=== PATIENT | female | born 1935 | race Caucasian/White ===

== ENCOUNTER 2017-05-29 09:03 | Observation (INO) | payer MEDICARE ==
--- NOTE | 2017-05-29 10:03 | RAD ---
INDICATION: Chest pain. COMPARISON: There are no prior studies available for comparison. TECHNIQUE: Dual-energy PA and lateral views of the chest were obtained. FINDINGS: The heart is within normal limits in size. Mediastinal and hilar contours appear within normal limits. The lungs are clear. No pleural effusion is present. IMPRESSION: NO EVIDENCE FOR ACTIVE CARDIOPULMONARY DISEASE.
[2017-05-29 10:14] LABS: Hematocrit 39 % (35-47); Hemoglobin 12.9 g/dl (12.0-16.0); Mean Corpuscular HGB Conc 33 g/dl (31-36); Mean Corpuscular Hemoglobin 32 pg (27-31); Mean Corpuscular Volume 96 fL (80-97); Mean Platelet Volume 9 um3 (7.4-10.4); Red Blood Count 4.07 10^6/ul (4.0-5.4); Red Cell Distribution Width 14 % (10.5-15); White Blood Count 9.1 10^3/ul (3.5-10.8)
[2017-05-29 10:31] LABS: Albumin 3.2 g/dL (3.2-5.2); BUN/Creatinine Ratio 23.7 (8-20); Calcium 10.1 mg/dL (8.6-10.3); EGFR Non-African American 57.6 (>60); Globulin 2.9 g/dL (2-4); Magnesium 1.9 mg/dL (1.9-2.7); Potassium 3.9 mmol/L (3.5-5.0); Total Bilirubin 0.7 mg/dL (0.2-1.0); Total Protein 6.1 g/dL (6.4-8.9)
[2017-05-29 10:37] LABS: Troponin I 0.06 ng/mL (<0.04)
[2017-05-29 11:02] LABS: TSH (Thyroid Stimulating Horm) 4.4 mcIU/mL (0.34-5.60)
[2017-05-29] MEDS: Enoxaparin(*) 40 MG/0.4 ML SYR SUBCUT SCH (13:48)
[2017-05-29] MEDS: Metoprolol Tartrate TAB* 25 MG PO SCH (13:48)
[2017-05-29 14:54] LABS: Urine Bacteria Absent (Absent); Urine Bilirubin Negative (Negative); Urine Glucose Negative (Negative); Urine Nitrite Negative (Negative)
--- NOTE | 2017-05-29 15:20 | HP ---
CC: Dr. Hinojosa; Dr. Mosley, Cardiology. * HISTORY AND PHYSICAL: DATE OF ADMISSION: 05/29/17 PRIMARY CARE PHYSICIAN: Dr. Hinojosa. CHIEF COMPLAINT: Palpitations, chest heaviness. HISTORY OF PRESENT ILLNESS: Ms. Akesr is a pleasant 81-year-old female with a past medical history of hypertension, "irregular heart rate;" osteopenia; Aide's thyroiditis, status post left partial thyroidectomy who presents to the hospital with headache, palpitations and chest heaviness. Patient states that these symptoms began this morning; however, she has been having flu-like symptoms for the past week or so. Earlier this month around 05/09/17 or , she found a tick under her right breast. She thinks it was on there for at least 48 hours possibly up to 3 plus days. The tick was removed. She went on vacation and came back on 05/17/17. About a week after that her symptoms began. She states she has flu-like symptoms, general malaise, low grade fevers and chills at home with a documented temperature of 100.9 at the highest, also had a loss of appetite. Denies any nausea, vomiting, abdominal pain. She said there was a small red area around the tick bite that did not have any central clearing. She went to see her PCP this past Tuesday05/23/17, regarding these symptoms and the tick bite. She saw Dr. Tavares in the clinic. He did not feel that her rash looked like that of lyme disease, but did send off some blood work as well as a CBC, as well as a CMP. Lyme serology was negative which is seen in our system right now. Patient states that she was told to take some ibuprofen and try to get some rest. She felt like over the past few days her symptoms seemed to be improving. She was able to get some sleep and her temperature normalized. However, this morning as soon as she woke up, she felt the headache and palpitations. She felt like her heart rate was irregular and had some associated chest heaviness. During this she called the EMS, was brought to the hospital and was found to be in atrial fibrillation on a 12-lead EKG. While in the emergency department, she spontaneously converted on her own back to normal sinus rhythm. PAST MEDICAL HISTORY: Significant for: 1. Hypertension. 2. Irregular heart rate, possibly PVC's. 3. Osteopenia. 4. Aide's thyroiditis, status post left partial thyroidectomy. PAST SURGICAL HISTORY: 1. D and C. 2. Intrauterine polyp removal. 3. Left partial thyroidectomy. HOME MEDICATIONS: 1. Metoprolol tartrate 25 mg by mouth daily. 2. Calcium citrate plus D 1 tablet by mouth daily. 3. Aspirin 81 mg by mouth at bedtime. 4. Amlodipine 2.5 mg by mouth at bedtime. 5. Multivitamin 1 tablet by mouth at bedtime. ALLERGIES: The patient reports no known drug allergies. FAMILY HISTORY: Significant for her mother with diabetes, father with heart problem. SOCIAL HISTORY: The patient has no history of tobacco abuse. Does not use any alcohol or illicit drug use. REVIEW OF SYSTEMS: A 12-point review of systems negative except for that as noted in the HPI. PHYSICAL EXAMINATION GENERAL: This patient is a pleasant elderly female, lying in bed in no apparent distress. VITAL SIGNS: On admission, temperature 99.0, heart rate of 131, respiratory rate of 20, O2 saturation 99% on room air, blood pressure 104/51. HEENT: Head: Normocephalic, atraumatic. Eyes: Pupils equal, round, and reactive to light and accommodation. Anicteric sclerae. ENT: Moist mucous membranes. No cervical adenopathy. LUNGS: Clear to auscultation bilaterally. No wheezes, rales or rhonchi. CARDIOVASCULAR: Regular rate and rhythm. Occasional ectopic beat. No murmurs, gallops or rubs. ABDOMEN: Soft, nontender, nondistended. Bowel sounds are positive. EXTREMITIES: No cyanosis, clubbing or edema. SKIN: The patient has a small erythematous area on her right breast, where she states her previous tick was located. There is no erythema or tenderness. She does have some small erythematous patches on her abdomen without any central clearing. DIAGNOSTIC STUDIES/LAB DATA: White blood cell count 9.1, hematocrit of 39, platelets 239. INR of 0.97. Sodium 138, potassium 3.9, chloride of 103, carbon dioxide of 30, BUN of 22, creatinine of 0.93, glucose of 120. Lactic acid of 1.1. AST of 56, ALT of 59, alk phos of 142. CK of 16, CK-MB of 2.2, troponin 0.06, B- natriuretic peptide of 131. TSH of 4.4. Chest x-ray personally reviewed shows no acute disease. EKG personally reviewed initially showed atrial fibrillation with heart rate of 115, with an RSR prime. Subsequent EKG showed normal sinus rhythm, again with RSR prime, some T-wave flattening in III and AVF as well as inversion of V3. I did not appreciate any significant ST changes. ASSESSMENT AND PLAN: New onset atrial fibrillation, spontaneously converted, with associated chest heaviness and palpitations in an 81-year-old female with a past medical history of hypertension, osteopenia, Aide's thyroiditis, what sounds like premature ventricular contractions, and tick bite earlier this month. 1. Atrial fibrillation. Patient converted back to normal sinus rhythm without any additional medications. We will continue on her home metoprolol for now. Will not start anticoagulation at this time. Ordered an echocardiogram. We will trend the patient's troponins, but I think it is most likely that her mild troponin elevation is due to demand ischemia from the atrial fibrillation rather than ischemia causing the atrial fibrillation. TSH is within normal limits. I do not think this is in relation to her previous tick bite. 2. Tick bite earlier this month. The patient has Lyme serology sent on that was negative. This was likely about 2 weeks or so after her tick bite. She does have some mild LFT elevations. I will send PCR for anaplasmosis and ehrlichiosis as she has been having low grade fevers and flu like symptoms. Continue supportive care for now with analgesics and antiinflammatories. 3. Hypertension. Continue amlodipine and metoprolol. 4. Osteopenia. Patient takes alendronate at home, we will hold this for now. 5. DVT prophylaxis: Lovenox subcu. 6. Code status: The patient is a full code. TIME SPENT: Total time spent on this admission 45 minutes, with over half the time spent [id number] with the patient in counseling and coordinating care. [id number]/[facility] #: [id number] MTDD
--- NOTE | 2017-05-29 18:51 | ED ---
Bang Wright Thomas, scribed for Zane Benites MD on 05/29/17 at 0944 . Palpitations / Dysrhythmia - HPI Summary HPI Summary: The pt is an 81 y/o BIBA c/o palpitations that began this AM. Pt additionally c/ o chest heaviness, MARTIN (severe, onset when she woke up), dizziness (minor), diaphoresis, near-syncope, fever (over the past week), and generalized malaise. Pt denies SOB and pedal edema (although she did have R foot swelling two weeks ago, resolved in the ED). She took a Tylenol at 03:00 today. She is not taking any blood thinners. PMHx: A-Fib, anemia, HTN, mitral/aortic valve regurgitation. PSHx: T&A. SHx: no smoking, no drinking, no illicit drugs. She claims recent tick bites. - History of Current Complaint Chief Complaint: EDDysrhythmPalp Time Seen by Provider: 05/29/17 09:29 Hx Obtained From: Patient Onset/Duration: Sudden Onset - this AM when she woke up, Resolved - malaise is resolved in the ED Timing: Constant Character: Pounding Aggravating: Nothing Alleviating: Nothing Associated Signs & Symptoms: Dizzy - minor, Syncope - near, Diaphoresis - Allergy/Home Medications Allergies/Adverse Reactions: Allergies Allergy/AdvReac Type Severity Reaction Status Date / Time No Known Allergies Allergy Verified 12/27/12 07:23 Home Medications: Home Medications Metoprolol Tartrate TAB* [Lopressor TAB*] 25 mg PO DAILY 05/29/17 [History Confirmed 05/29/17] PMH/Surg Hx/FS Hx/Imm Hx Previously Healthy: No Endocrine/Hematology History: Reports: Hx Thyroid Disease - THYROIDECTOMY- HASHIMOTOS, Hx Anemia - SLIGHT IN THE PAST Cardiovascular History: Reports: Hx Atrial Fibrillation, Hx Hypertension - ON MEDS, Hx Valvular Heart Disease - AORTIC VALVE LEAKAGE, Other Cardiovascular Problems/Disorders Respiratory History: Denies: Other Respiratory Problems/Disorders Musculoskeletal History: Denies: Hx Osteoporosis Sensory History: Reports: Hx Contacts or Glasses - GLASSES Denies: Hx Hearing Aid Opthamlomology History: Reports: Hx Contacts or Glasses - GLASSES Neurological History: Denies: Other Neuro Impairments/Disorders - Cancer History Hx Chemotherapy: No Hx Radiation Therapy: No - Surgical History Surgery Procedure, Year, and Place: TH[place]ROID LEFT [place], , [facility] [place] REMOV[place], , [facility] [place], [place], [place]. [place], TONSI[place]OMY, [facility] [place] ADENOIDECT[place] Hx Anesthesia Reactions: No Infectious Disease History: No Infectious Disease History: Denies: Traveled Outside the [place] in Last 30 Days - Family History Known Family History: Positive: Other - NEG: per neighbor present in room, no [place] - Social History Alcohol Use: None Substance Use Type: Reports: None Smoking Status (MU): Never Smoked Tobacco Review of Systems Positive: Fever - over the past week, Skin Diaphoresis, Other - POS: generalized malaise Eyes: Negative ENT: Negative Positive: Palpitations - pounding, Chest Pain - heaviness Respiratory: Negative Negative: Shortness Of Breath Gastrointestinal: Negative Genitourinary: Negative Musculoskeletal: Negative Negative: Edema - pedal Skin: Negative Neurological: Other - POS: dizziness (minor) Positive: Headache - severe, onset today, Syncope - near Psychological: Normal All Other Systems Reviewed And Are Negative: Yes Physical Exam - Summary Physical Exam Summary: VITAL SIGNS: Reviewed. GENERAL: Patient is a well developed and nourished female who is lying comfortable in the stretcher. Patient is not in any acute respiratory distress. HEAD AND FACE: No signs of trauma. No ecchymosis, hematomas or skull depressions. No sinus tenderness. EYES: PERRLA, EOMI x 2, No injected conjunctiva, no nystagmus. EARS: Hearing grossly intact. Ear canals and tympanic membranes are within normal limits. MOUTH: Oropharynx within normal limits. NECK: Supple, trachea is midline, no adenopathy, no JVD, no carotid bruit, no c- spine tenderness, neck with full ROM. CHEST: Symmetric, no tenderness at palpation LUNGS: Clear to auscultation bilaterally. No wheezing or crackles. CVS: irregular rate and rhythm, S1 and S2 present, no murmurs or gallops appreciated. ABDOMEN: Soft, non-tender. No signs of distention. No rebound no guarding, and no masses palpated. Bowel sounds are normal. EXTREMITIES: FROM in all major joints, no edema, no cyanosis or clubbing. NEURO: Alert and oriented x 3. No acute neurological deficits. Speech is normal and follows commands. SKIN: Dry and warm Triage Information Reviewed: Yes Vital Signs On Initial Exam: Initial Vitals Temp Pulse Resp Pulse Ox 99.0 F 131 20 99 05/29/17 09:17 05/29/17 09:17 05/29/17 09:17 05/29/17 09:17 Vital Signs Reviewed: Yes - [place] Coma Scale Coma Scale Total: 15 Diagnostics - Vital Signs Vital Signs Temp Pulse Resp BP Pulse Ox 05/29/17 09:22 99.5 F 109 16 104/51 95 05/29/17 09:20 108 95 05/29/17 09:19 109 94 05/29/17 09:17 99.0 F 131 20 99 - Laboratory Lab Results: Lab Results 05/29/17 05/29/17 05/29/17 Range/Units 10:00 10:00 10:00 WBC 9.1 (3.5-10.8) 10^3/ul RBC 4.07 (4.0-5.4) 10^6/ul Hgb 12.9 (12.0-16.0) g/dl Hct 39 (35-47) % MCV 96 (80-97) fL MCH 32 H (27-31) pg MCHC 33 (31-36) g/dl RDW 14 (10.5-15) % Plt Count 239 (150-450) 10^3/ul MPV 9 (7.4-10.4) um3 Neut % (Auto) 73.5 (38-83) % Lymph % (Auto) 19.5 L (25-47) % [place] % (Auto) 5.9 (1-9) % Eos % (Auto) 0.5 (0-6) % Baso % (Auto) 0.6 (0-2) % Absolute Neuts (auto) 6.7 (1.5-7.7) 10^3/ul Absolute Lymphs (auto) 1.8 (1.0-4.8) 10^3/ul Absolute Monos (auto) 0.5 (0-0.8) 10^3/ul Absolute Eos (auto) 0 (0-0.6) 10^3/ul Absolute Basos (auto) 0.1 (0-0.2) 10^3/ul Absolute Nucleated RBC 0.01 10^3/ul Nucleated RBC % 0.1 INR (Anticoag Therapy) 0.97 (0.89-1.11) Sodium 138 (133-145) mmol/L Potassium 3.9 (3.5-5.0) mmol/L Chloride 103 (101-111) mmol/L Carbon Dioxide 30 (22-32) mmol/L Anion Gap 5 (2-11) mmol/L BUN 22 (6-24) mg/dL Creatinine 0.93 (0.51-0.95) mg/dL Est GFR ( Amer) 74.0 (>60) Est GFR (Non-Af Amer) 57.6 (>60) BUN/Creatinine Ratio 23.7 H (8-20) Glucose 120 H (70-100) mg/dL Lactic Acid (0.5-2.0) mmol/L Calcium 10.1 (8.6-10.3) mg/dL Magnesium 1.9 (1.9-2.7) mg/dL Total Bilirubin 0.70 (0.2-1.0) mg/dL AST 56 H (13-39) U/L ALT 59 H (7-52) U/L Alkaline Phosphatase 142 H (34-104) U/L Total Creatine Kinase 16 (10-223) U/L CK-MB (CK-2) 2.2 (0.6-6.3) ng/mL Troponin I 0.06 H* (<0.04) ng/mL B-Natriuretic Peptide ( - 100) pg/mL Total Protein 6.1 L (6.4-8.9) g/dL Albumin 3.2 (3.2-5.2) g/dL Globulin 2.9 (2-4) g/dL Albumin/Globulin Ratio 1.1 (1-3) TSH 4.40 (0.34-5.60) mcIU/mL 05/29/17 05/29/17 Range/Units 10:00 10:00 WBC (3.5-10.8) 10^3/ul RBC (4.0-5.4) 10^6/ul Hgb (12.0-16.0) g/dl Hct (35-47) % MCV (80-97) fL MCH (27-31) pg MCHC (31-36) g/dl RDW (10.5-15) % Plt Count (150-450) 10^3/ul MPV (7.4-10.4) um3 Neut % (Auto) (38-83) % Lymph % (Auto) (25-47) % [place] % (Auto) (1-9) % Eos % (Auto) (0-6) % Baso % (Auto) (0-2) % Absolute Neuts (auto) (1.5-7.7) 10^3/ul Absolute Lymphs (auto) (1.0-4.8) 10^3/ul Absolute Monos (auto) (0-0.8) 10^3/ul Absolute Eos (auto) (0-0.6) 10^3/ul Absolute Basos (auto) (0-0.2) 10^3/ul Absolute Nucleated RBC 10^3/ul Nucleated RBC % INR (Anticoag Therapy) (0.89-1.11) Sodium (133-145) mmol/L Potassium (3.5-5.0) mmol/L Chloride (101-111) mmol/L Carbon Dioxide (22-32) mmol/L Anion Gap (2-11) mmol/L BUN (6-24) mg/dL Creatinine (0.51-0.95) mg/dL Est GFR ( Amer) (>60) Est GFR (Non-Af Amer) (>60) BUN/Creatinine Ratio (8-20) Glucose (70-100) mg/dL Lactic Acid 1.1 (0.5-2.0) mmol/L Calcium (8.6-10.3) mg/dL Magnesium (1.9-2.7) mg/dL Total Bilirubin (0.2-1.0) mg/dL AST (13-39) U/L ALT (7-52) U/L Alkaline Phosphatase (34-104) U/L Total Creatine Kinase (10-223) U/L CK-MB (CK-2) (0.6-6.3) ng/mL Troponin I (<0.04) ng/mL B-Natriuretic Peptide 131 H ( - 100) pg/mL Total Protein (6.4-8.9) g/dL Albumin (3.2-5.2) g/dL Globulin (2-4) g/dL Albumin/Globulin Ratio (1-3) TSH (0.34-5.60) mcIU/mL Result Diagrams: 05/29/17 10:00 05/29/17 10:00 Lab Statement: Any lab studies that have been ordered have been reviewed, and results considered in the medical decision making process. - Radiology CXR Xray Interpretation: No Acute Changes - No evidence for active cardiopulmonary disease Radiology Interpretation Completed By: Radiologist - EKG 09:43 Cardiac Rate: Tachycardia - 115 BPM EKG Interpretation: A-Fib with RVR Course/Dx - Course Assessment/Plan: The pt is an 81 y/o BIBA c/o palpitations that began this AM. Pt additionally c/o chest heaviness, MARTIN (severe, onset when she woke up), dizziness (minor), diaphoresis, near-syncope, fever (over the past week), and generalized malaise. Pt denies SOB and pedal edema (although she did have R foot swelling two weeks ago, resolved in the ED). She took a Tylenol at 03:00 today. She is not taking any blood thinners. PMHx: A-Fib, anemia, HTN, mitral/ aortic valve regurgitation. PSHx: T&A. SHx: no smoking, no drinking, no illicit drugs. She claims recent tick bites. Tests are without significant abnormalities except Glucose 120, Troponin 0.6, and elevated LFTs. CXR revealed no evidence for acute disease. The patient is asymptomatic, therefore we did not treat with Cardizem. In the ED course her heart rate was 90-100 BPM. Because of her increased troponin, she was given aspirin. The patient is hemodynamically stable and A&Ox3. - Diagnoses Differential Diagnosis/HQI/PQRI: Positive: Other - Atrial Fibrillation, NSTEMI, ACS, CHF Provider Diagnoses: Paroxysmal atrial fibrillation with RVR, Increased troponin r/o ACS - Physician Notifications Discussed Care Of Patient With: Adolfo Woodall Time Discussed With Above Provider: 11:14 Instructed by Provider To: Other - Discussed patient care. He will accept the patient for admission to [facility] [place]. Discharge - Discharge Plan Condition: Fair Disposition: ADMITTED TO [facility] documentation as recorded by the Bang keen Thomas accurately reflects the service I personally performed and the decisions made by mn, Zane Benites MD.
[2017-05-29] MEDS: Acetaminophen TAB* 325 MG PO PRN (19:48)
[2017-05-29] MEDS ORDERED: amLODIPine TAB* 5 MG PO SCH (21:00)
[2017-05-29] MEDS ORDERED: Vitamin THERAPEUTIC TAB PO SCH (21:00)
[2017-05-29] MEDS ORDERED: Aspirin Low Dose CHEW TAB* 81 MG PO SCH (21:00)
[2017-05-29] MEDS ORDERED: Ibuprofen TAB* 400 MG PO ONE (22:25)
[2017-05-30 06:06] LABS: Albumin 2.7 g/dL (3.2-5.2); BUN/Creatinine Ratio 23.1 (8-20); Calcium 9.5 mg/dL (8.6-10.3); EGFR African American 65.1 (>60); EGFR Non-African American 50.6 (>60); Globulin 2.8 g/dL (2-4); Potassium 3.8 mmol/L (3.5-5.0); Total Bilirubin 0.6 mg/dL (0.2-1.0); Total Protein 5.5 g/dL (6.4-8.9)
[2017-05-30] MEDS: Acetaminophen TAB* 325 MG PO PRN ×2 (08:54→17:59)
[2017-05-30] MEDS: Metoprolol Tartrate TAB* 25 MG PO SCH (08:55)
[2017-05-30] MEDS: Enoxaparin(*) 40 MG/0.4 ML SYR SUBCUT SCH (11:49)
--- NOTE | 2017-05-30 14:12 | PN ---
Subjective Date of Service: 05/30/17 Interval History: No palpitations or chest pressure since admission. No new c/o. She never had theses sx's before. Her headache seems to have gone also. Objective Active Medications: Acetaminophen (Tylenol Tab*) 650 mg PO Q4H PRN PRN Reason: Pain/fever Last Admin: 05/30/17 08:54 Dose: 650 mg Amlodipine Besylate (Norvasc Tab*) 2.5 mg PO BEDTIME [facility] Last Admin: 05/29/17 19:47 Dose: 2.5 mg Aspirin (Aspirin Low Dose Tab*) 81 mg PO BEDTIME [facility] Last Admin: 05/29/17 19:48 Dose: 81 mg Enoxaparin Sodium (Lovenox(*)) 40 mg SUBCUT Q24H [facility] Last Admin: 05/30/17 11:49 Dose: 40 mg Metoprolol Tartrate (Lopressor Tab*) 25 mg PO DAILY [facility] Last Admin: 05/30/17 08:55 Dose: 25 mg Multivitamins (Theragran Tab*) 1 tab PO BEDTIME [facility] Last Admin: 05/29/17 19:47 Dose: 1 tab Vital Signs 05/29/17 05/29/17 05/29/17 14:10 14:20 14:30 Temperature Pulse Rate Respiratory 10 12 65 Rate Blood Pressure (mmHg) O2 Sat by Pulse Oximetry 05/29/17 05/29/17 05/29/17 14:40 14:50 15:00 Temperature Pulse Rate Respiratory 15 0 30 Rate Blood Pressure (mmHg) O2 Sat by Pulse Oximetry 05/29/17 05/29/17 05/29/17 15:10 15:20 15:30 Temperature Pulse Rate Respiratory 17 15 21 Rate Blood Pressure (mmHg) O2 Sat by Pulse Oximetry 05/29/17 05/29/17 05/29/17 15:31 15:40 15:50 Temperature 99.0 F Pulse Rate 70 Respiratory 16 12 20 Rate Blood Pressure 97/53 (mmHg) O2 Sat by Pulse 97 Oximetry 05/29/17 05/29/17 05/29/17 16:00 16:10 16:20 Temperature Pulse Rate Respiratory 8 3 5 Rate Blood Pressure (mmHg) O2 Sat by Pulse Oximetry 05/29/17 05/29/17 05/29/17 16:30 16:40 16:50 Temperature Pulse Rate Respiratory 0 0 15 Rate Blood Pressure (mmHg) O2 Sat by Pulse Oximetry 05/29/17 05/29/17 05/29/17 17:00 17:10 17:20 Temperature Pulse Rate Respiratory 11 17 13 Rate Blood Pressure (mmHg) O2 Sat by Pulse Oximetry 05/29/17 05/29/17 05/29/17 17:30 17:40 17:50 Temperature Pulse Rate Respiratory 7 12 15 Rate Blood Pressure (mmHg) O2 Sat by Pulse Oximetry 05/29/17 05/29/17 05/29/17 18:00 18:10 18:20 Temperature Pulse Rate Respiratory 0 0 0 Rate Blood Pressure (mmHg) O2 Sat by Pulse Oximetry 05/29/17 05/29/17 05/29/17 18:30 18:40 18:50 Temperature Pulse Rate Respiratory 16 29 9 Rate Blood Pressure (mmHg) O2 Sat by Pulse Oximetry 05/29/17 05/29/17 05/29/17 19:00 19:10 19:20 Temperature Pulse Rate Respiratory 9 27 4 Rate Blood Pressure (mmHg) O2 Sat by Pulse Oximetry 05/29/17 05/29/17 05/29/17 19:29 19:30 19:40 Temperature 100.1 F Pulse Rate 78 Respiratory 16 17 13 Rate Blood Pressure 105/47 (mmHg) O2 Sat by Pulse 95 Oximetry 05/29/17 05/29/17 05/29/17 19:50 20:00 20:10 Temperature Pulse Rate Respiratory 17 18 13 Rate Blood Pressure (mmHg) O2 Sat by Pulse Oximetry 05/29/17 05/29/17 05/29/17 20:20 20:30 20:39 Temperature Pulse Rate 78 Respiratory 28 0 Rate Blood Pressure 105/47 (mmHg) O2 Sat by Pulse Oximetry 05/29/17 05/29/17 05/29/17 20:40 20:43 20:50 Temperature Pulse Rate 85 Respiratory 0 0 Rate Blood Pressure 108/48 (mmHg) O2 Sat by Pulse Oximetry 05/29/17 05/29/17 05/29/17 21:00 21:10 21:20 Temperature Pulse Rate 94 Respiratory 13 18 20 Rate Blood Pressure 106/49 (mmHg) O2 Sat by Pulse Oximetry 05/29/17 05/29/17 05/29/17 21:30 21:40 21:50 Temperature Pulse Rate Respiratory 16 21 22 Rate Blood Pressure (mmHg) O2 Sat by Pulse Oximetry 05/29/17 05/29/17 05/29/17 22:00 22:10 22:16 Temperature 99.7 F Pulse Rate Respiratory 15 19 Rate Blood Pressure (mmHg) O2 Sat by Pulse Oximetry 05/29/17 05/29/17 05/29/17 22:20 22:30 22:40 Temperature Pulse Rate Respiratory 17 16 9 Rate Blood Pressure (mmHg) O2 Sat by Pulse Oximetry 05/29/17 05/29/17 05/29/17 22:50 23:00 23:10 Temperature Pulse Rate Respiratory 14 38 16 Rate Blood Pressure (mmHg) O2 Sat by Pulse Oximetry 05/29/17 05/29/17 05/29/17 23:20 23:30 23:40 Temperature Pulse Rate Respiratory 7 10 15 Rate Blood Pressure (mmHg) O2 Sat by Pulse Oximetry 05/29/17 05/29/17 05/29/17 23:45 23:50 23:55 Temperature 99.4 F Pulse Rate 71 Respiratory 16 18 17 Rate Blood Pressure 107/45 (mmHg) O2 Sat by Pulse 93 Oximetry 05/30/17 05/30/17 05/30/17 00:00 00:10 00:20 Temperature Pulse Rate Respiratory 15 0 0 Rate Blood Pressure (mmHg) O2 Sat by Pulse Oximetry 05/30/17 05/30/17 05/30/17 00:30 00:40 00:50 Temperature Pulse Rate Respiratory 0 0 0 Rate Blood Pressure (mmHg) O2 Sat by Pulse Oximetry 05/30/17 05/30/17 05/30/17 01:00 01:10 01:20 Temperature Pulse Rate Respiratory 0 0 0 Rate Blood Pressure (mmHg) O2 Sat by Pulse Oximetry 05/30/17 05/30/17 05/30/17 01:30 01:40 01:50 Temperature Pulse Rate Respiratory 13 17 2 Rate Blood Pressure (mmHg) O2 Sat by Pulse Oximetry 05/30/17 05/30/17 05/30/17 02:00 02:10 02:20 Temperature Pulse Rate Respiratory 14 14 14 Rate Blood Pressure (mmHg) O2 Sat by Pulse Oximetry 05/30/17 05/30/17 05/30/17 02:30 02:40 02:50 Temperature Pulse Rate Respiratory 12 4 0 Rate Blood Pressure (mmHg) O2 Sat by Pulse Oximetry 05/30/17 05/30/1705/30/17 03:00 03:10 03:20 Temperature Pulse Rate Respiratory 0 0 13 Rate Blood Pressure (mmHg) O2 Sat by Pulse Oximetry 05/30/17 05/30/17 05/30/17 03:22 03:30 03:40 Temperature 98.8 F Pulse Rate 66 Respiratory 16 12 16 Rate Blood Pressure 103/48 (mmHg) O2 Sat by Pulse 96 Oximetry 05/30/17 05/30/17 05/30/17 03:50 04:00 04:10 Temperature Pulse Rate Respiratory 12 11 13 Rate Blood Pressure (mmHg) O2 Sat by Pulse Oximetry 05/30/17 05/30/17 05/30/17 04:20 04:30 04:40 Temperature Pulse Rate Respiratory 14 11 10 Rate Blood Pressure (mmHg) O2 Sat by Pulse Oximetry 05/30/17 05/30/17 05/30/17 04:50 05:00 05:10 Temperature Pulse Rate Respiratory 9 14 0 Rate Blood Pressure (mmHg) O2 Sat by Pulse Oximetry 05/30/17 05/30/17 05/30/17 05:20 05:30 05:40 Temperature Pulse Rate Respiratory 15 16 0 Rate Blood Pressure (mmHg) O2 Sat by Pulse Oximetry 05/30/17 05/30/17 05/30/17 05:50 06:00 06:10 Temperature Pulse Rate Respiratory 0 0 0 Rate Blood Pressure (mmHg) O2 Sat by Pulse Oximetry 05/30/17 05/30/17 05/30/17 06:20 06:30 06:40 Temperature Pulse Rate Respiratory 0 0 4 Rate Blood Pressure (mmHg) O2 Sat by Pulse Oximetry 05/30/17 05/30/17 05/30/17 06:50 07:00 07:10 Temperature Pulse Rate Respiratory 4 4 17 Rate Blood Pressure (mmHg) O2 Sat by Pulse Oximetry 05/30/17 05/30/17 05/30/17 07:20 07:30 07:40 Temperature 98.0 F Pulse Rate 69 Respiratory 14 18 14 Rate Blood Pressure 100/53 (mmHg) O2 Sat by Pulse 94 Oximetry 05/30/17 05/30/17 05/30/17 07:50 08:00 08:10 Temperature Pulse Rate Respiratory 16 16 20 Rate Blood Pressure (mmHg) O2 Sat by Pulse Oximetry 05/30/17 05/30/17 05/30/17 08:20 08:30 08:40 Temperature Pulse Rate Respiratory 21 12 19 Rate Blood Pressure (mmHg) O2 Sat by Pulse Oximetry 05/30/17 05/30/17 05/30/17 08:50 09:00 09:10 Temperature Pulse Rate Respiratory 15 9 30 Rate Blood Pressure (mmHg) O2 Sat by Pulse Oximetry 05/30/17 05/30/17 05/30/17 09:20 09:30 09:40 Temperature Pulse Rate Respiratory 13 10 11 Rate Blood Pressure (mmHg) O2 Sat by Pulse Oximetry 05/30/17 05/30/17 05/30/17 09:50 10:00 10:10 Temperature Pulse Rate Respiratory 12 10 11 Rate Blood Pressure (mmHg) O2 Sat by Pulse Oximetry 05/30/17 05/30/17 05/30/17 10:20 10:30 10:40 Temperature Pulse Rate Respiratory 12 1 13 Rate Blood Pressure (mmHg) O2 Sat by Pulse Oximetry 05/30/17 05/30/17 05/30/17 10:50 11:00 11:06 Temperature 97.4 F Pulse Rate 67 Respiratory 0 13 16 Rate Blood Pressure 111/60 (mmHg) O2 Sat by Pulse 99 Oximetry 05/30/17 05/30/17 05/30/17 11:10 11:20 11:30 Temperature Pulse Rate Respiratory 14 15 17 Rate Blood Pressure (mmHg) O2 Sat by Pulse Oximetry 05/30/17 11:40 Temperature Pulse Rate Respiratory 13 Rate Blood Pressure (mmHg) O2 Sat by Pulse Oximetry Oxygen Devices in Use Now: None Appearance: Alert, sitting up in bed. In good spirits. Looks comfortable. Eyes: No Scleral Icterus Neck: NL Appearance and Movements; NL JVP, No Thyroid Enlargement, Masses Respiratory: Symmetrical Chest Expansion and Respiratory Effort, Clear to Auscultation, Clear to Percussion Cardiovascular: RRR, No Edema, - - 1-2/6 systolic murmur L>R Abdominal: NL Sounds; No Tenderness; No Distention, No Hepatosplenomegaly Extremities: No Edema, No Clubbing, Cyanosis Skin: No Rash or Ulcers, No Nodules or Sclerosis Neurological: Alert and Oriented x 3, NL Sensation Result Diagrams: 05/29/17 10:00 05/30/17 05:23 Additional Lab and Data: Lab Results 07/23/17 07/23/17 07/23/17 Range/Units 10:00 10:00 10:00 WBC 9.1 (3.5-10.8) 10^3/ul RBC 4.07 (4.0-5.4) 10^6/ul Hgb 12.9 (12.0-16.0) g/dl Hct 39 (35-47) % MCV 96 (80-97) fL MCH 32 H (27-31) pg MCHC 33 (31-36) g/dl RDW 14 (10.5-15) % Plt Count 239 (150-450) 10^3/ul MPV 9 (7.4-10.4) um3 Neut % (Auto) 73.5 (38-83) % Lymph % (Auto) 19.5 L (25-47) % [place] % (Auto) 5.9 (1-9) % Eos % (Auto) 0.5 (0-6) % Baso % (Auto) 0.6 (0-2) % Absolute Neuts (auto) 6.7 (1.5-7.7) 10^3/ul Absolute Lymphs (auto) 1.8 (1.0-4.8) 10^3/ul Absolute Monos (auto) 0.5 (0-0.8) 10^3/ul Absolute Eos (auto) 0 (0-0.6) 10^3/ul Absolute Basos (auto) 0.1 (0-0.2) 10^3/ul Absolute Nucleated RBC 0.01 10^3/ul Nucleated RBC % 0.1 INR (Anticoag Therapy) 0.97 (0.89-1.11) Sodium 138 (133-145) mmol/L Potassium 3.9 (3.5-5.0) mmol/L Chloride 103 (101-111) mmol/L Carbon Dioxide 30 (22-32) mmol/L Anion Gap 5 (2-11) mmol/L BUN 22 (6-24) mg/dL Creatinine 0.93 (0.51-0.95) mg/dL Est GFR ( Amer) 74.0 (>60) Est GFR (Non-Af Amer) 57.6 (>60) BUN/Creatinine Ratio 23.7 H (8-20) Glucose 120 H (70-100) mg/dL Lactic Acid (0.5-2.0) mmol/L Calcium 10.1 (8.6-10.3) mg/dL Magnesium 1.9 (1.9-2.7) mg/dL Total Bilirubin 0.70 (0.2-1.0) mg/dL AST 56 H (13-39) U/L ALT 59 H (7-52) U/L Alkaline Phosphatase 142 H (34-104) U/L Total Creatine Kinase 16 (10-223) U/L CK-MB (CK-2) 2.2 (0.6-6.3) ng/mL Troponin I 0.06 H* (<0.04) ng/mL B-Natriuretic Peptide ( - 100) pg/mL Total Protein 6.1 L (6.4-8.9) g/dL Albumin 3.2 (3.2-5.2) g/dL Globulin 2.9 (2-4) g/dL Albumin/Globulin Ratio 1.1 (1-3) TSH 4.40 (0.34-5.60) mcIU/mL 05/29/17 05/29/17 Range/Units 10:00 10:00 WBC (3.5-10.8) 10^3/ul RBC (4.0-5.4) 10^6/ul Hgb (12.0-16.0) g/dl Hct (35-47) % MCV (80-97) fL MCH (27-31) pg MCHC (31-36) g/dl RDW (10.5-15) % Plt Count (150-450) 10^3/ul MPV (7.4-10.4) um3 Neut % (Auto) (38-83) % Lymph % (Auto) (25-47) % [place] % (Auto) (1-9) % Eos % (Auto) (0-6) % Baso % (Auto) (0-2) % Absolute Neuts (auto) (1.5-7.7) 10^3/ul Absolute Lymphs (auto) (1.0-4.8) 10^3/ul Absolute Monos (auto) (0-0.8) 10^3/ul Absolute Eos (auto) (0-0.6) 10^3/ul Absolute Basos (auto) (0-0.2) 10^3/ul Absolute Nucleated RBC 10^3/ul Nucleated RBC % INR (Anticoag Therapy) (0.89-1.11) Sodium (133-145) mmol/L Potassium (3.5-5.0) mmol/L Chloride (101-111) mmol/L Carbon Dioxide (22-32) mmol/L Anion Gap (2-11) mmol/L BUN (6-24) mg/dL Creatinine (0.51-0.95) mg/dL Est GFR ( Amer) (>60) Est GFR (Non-Af Amer) (>60) BUN/Creatinine Ratio (8-20) Glucose (70-100) mg/dL Lactic Acid 1.1 (0.5-2.0) mmol/L Calcium (8.6-10.3) mg/dL Magnesium (1.9-2.7) mg/dL Total Bilirubin (0.2-1.0) mg/dL AST (13-39) U/L ALT (7-52) U/L Alkaline Phosphatase (34-104) U/L Total Creatine Kinase (10-223) U/L CK-MB (CK-2) (0.6-6.3) ng/mL Troponin I (<0.04) ng/mL B-Natriuretic Peptide 131 H ( - 100) pg/mL Total Protein (6.4-8.9) g/dL Albumin (3.2-5.2) g/dL Globulin (2-4) g/dL Albumin/Globulin Ratio (1-3) TSH (0.34-5.60) mcIU/mL Assess/Plan/Problems-Billing Assessment: - Patient Problems (1) PAF (paroxysmal atrial fibrillation) Current Visit: Yes Status: Acute Code(s): I48.0 - PAROXYSMAL ATRIAL FIBRILLATION SNOMED Code(s): 873248341 Comment: TSH nl. Echo showed nl LVEF, mild MR, mod LA dilatation. ? atrial fib provoked by her febril illness. Note temp 100.1 PM 05/29. (2) HTN (hypertension) Current Visit: Yes Status: Acute Code(s): I10 - ESSENTIAL (PRIMARY) HYPERTENSION SNOMED Code(s): 45405140 Comment: Stop amlodipine due to relatively low BP. Status and Disposition: Discharge now. Fup Dimitri Díaz.
--- NOTE | 2017-05-30 16:40 | ECHO ---
Patient: JEFFERSON MACIEL [facility] Rec#: [id number] : 1935 Date: 05/30/2017 Age: 81y Height: 160.02 cm / 63.0 in Weight: 63.5 kg / 140.0 lbs Sex: F BSA: 1.66 Room#: 432 Admit Date#: 05/29/2017 Type: Inpatient Referring: RODERICK SALAS MD Reading: Bertram Vega MD Workforce Planner: Mireille ReidRAMIRO CC: Bridger Hinojosa MD Transthoracic Echocardiogram Indication: A-fib BP: 111/60 HR: 68 Rhythm: NSR Findings History: HTN, Aide's thyroiditis, PFO, recent tick bite. Technical Comments: The study quality is good. Completed at 1530. Left Ventricle: The left ventricular chamber size is normal. Mild concentric left ventricular hypertrophy is observed. Global left ventricular wall motion and contractility are within normal limits. There is normal left ventricular systolic function. The estimated ejection fraction is 55-60%. Abnormal left ventricular diastolic function is observed. Abnormal left ventricular diastolic filling is observed, consistent with impaired relaxation. Left Atrium: The left atrium is moderately dilated. Right Ventricle: Moderator Band present. The right ventricular cavity size is normal. The right ventricle wall thickness is mildly increased. The right ventricular global systolic function is normal. Right Atrium: The right atrium is mild to moderately dilated. There is evidence of an atrial septal aneurysm. Aortic Valve: The aortic valve is trileaflet. The aortic valve leaflets are mildly thickened. Systolic excursion of the aortic valve cusps is reduced. There is mild aortic regurgitation. There is borderline aortic stenosis present. Mitral Valve: There is mitral annular calcification. The mitral valve leaflets are mildly thickened. There is mild mitral regurgitation. There is no evidence of mitral stenosis. Tricuspid Valve: The tricuspid valve leaflets are normal. There is mild tricuspid regurgitation. No pulmonary hypertension is noted. There is no tricuspid stenosis. Pulmonic Valve: The pulmonic valve appears normal. There is mild pulmonic regurgitation. There is no pulmonic stenosis. Pericardium: A trivial pericardial effusion is visualized. There are no signs of significant hemodynamic compromise. A pericardial fat pad is visualized. Aorta: There is no dilatation of the ascending aorta. There is no dilatation of the aortic arch. There is no dilation of the aortic root. Pulmonary Artery: The main pulmonary artery appears normal. Venous: The inferior vena cava is dilated. There is a greater than 50% respiratory change in the inferior vena cava dimension. Conclusions Global left ventricular wall motion and contractility are within normal limits. There is normal left ventricular systolic function. The estimated ejection fraction is 55-60%. Abnormal left ventricular diastolic filling is observed, consistent with impaired relaxation. The right ventricular global systolic function is normal. There is mild aortic regurgitation. There is borderline aortic stenosis present. There is mild mitral regurgitation. There is mild tricuspid regurgitation. No pulmonary hypertension is noted. A trivial pericardial effusion is visualized. There are no signs of significant hemodynamic compromise. Measurements Name Value Normal Range RVIDd (AP) 2D 3 cm (0.9 - 2.6) RVDdMajor (2D) 3.6 cm (2.2 - 4.4) RVAW (2D) 0.7 cm (0.2 - 0.5) RAd ISD 4CH 5.3 cm (3.4 - 4.9) RA (A4C)W 4.4 cm (2.9 - 4.6) IVSd (2D) 1.1 cm (0.6 - 1) LVPWd (2D) 1.1 cm (0.6 - 1) LVIDd (2D) 4.7 cm (3.6 - 5.4) LVIDs (2D) 3 cm - LV FS (2D) 36 % (25 - 45) Aortic Annulus 1.9 cm (1.4 - 2.6) Ao root diameter (2D) 3 cm (2.1 - 3.5) Ascending Ao 2.9 cm (2.1 - 3.4) Aortic arch 2.8 cm (1.8 - 3.4) LA dimension (AP) 2D 3.3 cm (2.3 - 3.8) LAd ISD 4CH 5.6 cm (2.9 - 5.3) LA ISD 4CH W 4.8 cm (2.5 - 4.5) Name Value Normal Range LA ESV SP 4CH (A/L) 75 ml - LA ESV SP 2CH (A/L) 61 ml - LA ESV BP (A/L) 68 ml - LA ESV BP (A/L) index 41 ml/m2 - LA ESV SP 4CH (MOD) 69 ml - LA ESV SP 2CH (MOD) 59 ml - Name Value Normal Range MV E-wave Vmax 0.94 m/sec - MV deceleration time 216 msec - MV A-wave Vmax 1.23 m/sec - MV E:A ratio 0.76 ratio - LV septal e' Vmax 0.05 m/sec - LV lateral e' Vmax 0.06 m/sec - LV E:e' septal ratio 18.8 ratio - LV E:e' lateral ratio 15.67 ratio - Name Value Normal Range AV Vmax 2.04 m/sec - AV VTI 43.7 cm - AV peak gradient 16.7 mmHg - AV mean gradient 9.12 mmHg - LVOT diameter 2 cm - LVOT Vmax 1.47 m/sec - LVOT VTI 33.1 cm - LVOT peak gradient 8.69 mmHg - LVOT mean gradient 5.83 mmHg - DOI (VTI) 0.78 ratio - CARISA (continuity Vmax) 2.26 cm2 - CARISA (continuity VTI) 2.38 cm2 - AR PHT 342 msec - AR peak gradient 47.98 mmHg - Name Value Normal Range TR Vmax 2.2 m/sec - TR peak gradient 19 mmHg - RAP 15 mmHg - RVSP 34 mmHg - IVC diameter 2.5 cm - Name Value Normal Range PV Vmax 0.97 m/sec - PV peak gradient 3.73 mmHg - GA end-diastolic Vmax 0.89 m/sec -
[2017-05-30 17:08] VITALS: BP 104/59
--- NOTE | 2017-05-31 14:36 | DS ---
CC: Dr. Davin Hinojosa; Dr. Mosley * DISCHARGE SUMMARY: DATE OF ADMISSION: DATE OF DISCHARGE: 05/30/17 HISTORY: This 81-year-old woman presented with palpitations and chest heaviness. She had some flu-like symptoms. She had noticed a tick under her right breast about May 09 or May 10, which she removed. Symptoms started a few days before admission. She had a Lyme serology sent, all of which was negative. She had some palpitations on the morning of admission. She had atrial fibrillation with a ventricular rate about 115. She spontaneously converted in the emergency room. She was monitored on telemetry. She had no further episodes of arrhythmia. Her temperature on the evening of the first hospital day was 100.1. It was under 100 after that. She felt much better. She had an echocardiogram which showed left ventricular ejection fraction was normal. There was mild mitral regurgitation and moderate left atrial dilatation. Her TSH was within normal limits. Other routine labs were unremarkable other than the creatinine of 1.04. Her troponin was minimally elevated with a peak of 0.09. She was told that she needed to be monitored as an outpatient to see if she has any other episodes of atrial fibrillation. This one was likely precipitated by her febrile infectious illness, which is now resolved. She was told to stop taking amlodipine as her blood pressure here had the highest diastolic was 60 and the highest systolic was 111 during her whole stay here. FINAL DIAGNOSES: 1. Paroxysmal atrial fibrillation. 2. Febrile illness, likely viral. 3. History of tick bite with negative Lyme serology. 4. Hypertension. DISCHARGE MEDICATIONS: 1. Multivitamin 1 daily. 2. Calcium citrate with vitamin D 1 daily. 3. Aspirin 81 mg h.s. 4. Metoprolol tartrate 25 mg daily. [id number]/[facility] #: [id number] [facility]
[2017-05-31 22:03] LABS: Ehrlichia ewingii/canis Negative (Negative)
== END 2017-05-30 19:25 | disposition home or self-care (01) ==
LOC: ED 09:03 → MEDTELE 11:43
PROVIDERS: ADMIT Hospitalist; ATTEND Internal Medicine
DX: I48.0 Paroxysmal atrial fibrillation (principal); R50.9 Fever, unspecified; I10 Essential (primary) hypertension; E06.3 Autoimmune thyroiditis; M85.80 Other specified disorders of bone density and structure, unspecified site; Z79.82 Long term (current) use of aspirin; Z79.899 Other long term (current) drug therapy
CPT/HCPCS: 36415; 71020; 80053; 81003; 81015; 82550; 82553; 83605; 83735; 83880; 84443; 84484; 85025; 85610; 87086; 87798; 93005; 93306; 96372; 99284; A9270-GY; G0378; J1650

== ENCOUNTER 2017-06-04 04:41 | Observation (INO) | payer MEDICARE ==
[2017-06-04 05:13] LABS: Hematocrit 33 % (35-47); Mean Corpuscular HGB Conc 33 g/dl (31-36); Mean Corpuscular Hemoglobin 32 pg (27-31); Mean Corpuscular Volume 95 fL (80-97); Mean Platelet Volume 9 um3 (7.4-10.4); Red Blood Count 3.48 10^6/ul (4.0-5.4); Red Cell Distribution Width 14 % (10.5-15); White Blood Count 9.9 10^3/ul (3.5-10.8)
[2017-06-04 05:16] LABS: Add Diff/Slide Review? Slide Review Added; Comments Flag Yes
[2017-06-04 05:25] LABS: Calcium 9.6 mg/dL (8.6-10.3); EGFR Non-African American 58.3 (>60); Potassium 3.8 mmol/L (3.5-5.0); Total Bilirubin 0.5 mg/dL (0.2-1.0)
[2017-06-04 05:27] LABS: Troponin I 0.02 ng/mL (<0.04)
[2017-06-04] MEDS ORDERED: Iodixanol* (CONTRAST) 320 MG/ML 100 ML SDV IV ONE (05:34)
[2017-06-04] MEDS ORDERED: Heparin DRIP 25,000 UNITS(*) 25,000 UNITS/500 ML BAG IVPB SCH (06:30)
--- NOTE | 2017-06-04 06:51 | ED ---
Jasiel Wright Alfonso, scribed for Ross Monroe on 06/04/17 at 0458 . Complex/Multi-Sys Presentation - HPI Summary HPI Summary: This patient is an 81 year old F BIBA to [facility] with a chief complaint of CP since 229. The CC is described as heaviness. The pain awoke her from sleep. Pt rates the pain 1/10 in severity. Symptoms aggravated and alleviated by nothing. Patient took ASA and Tylenol ALTERATION SPECIALIST which did not relieve her symptoms. Pt reports upper back pain. PMHx of A-Fib and HTN. - History Of Current Complaint Chief Complaint: EDChestPainROMI Time Seen by Provider: 06/04/17 04:49 Hx Obtained From: Patient Onset/Duration: Sudden Onset, Lasting Hours - since 229 this morning, Still Present Timing: Constant Severity Currently: Moderate Severity Initially: Moderate Location: Pain At: - Upper back and chest Character: Pressure - Heaviness Aggravating Factor(s): Nothing. Alleviating Factor(s): Nothing. Associated Signs And Symptoms: Positive: Back Pain - Upper - Allergies/Home Medications Allergies/Adverse Reactions: Allergies Allergy/AdvReac Type Severity Reaction Status Date / Time No Known Allergies Allergy Verified 12/27/12 07:23 PMH/Surg Hx/FS Hx/Imm Hx Endocrine/Hematology History: Reports: Hx Thyroid Disease - THYROIDECTOMY- HASHIMOTOS, Hx Anemia - SLIGHT IN THE PAST Cardiovascular History: Reports: Hx Atrial Fibrillation, Hx Hypertension - ON MEDS, Hx Valvular Heart Disease - AORTIC VALVE LEAKAGE, Other Cardiovascular Problems/Disorders Respiratory History: Denies: Other Respiratory Problems/Disorders Musculoskeletal History: Denies: Hx Osteoporosis Sensory History: Reports: Hx Contacts or Glasses - GLASSES Denies: Hx Hearing Aid Opthamlomology History: Reports: Hx Contacts or Glasses - GLASSES Neurological History: Denies: Other Neuro Impairments/Disorders - Cancer History Hx Chemotherapy: No Hx Radiation Therapy: No - Surgical History Surgery Procedure, Year, and Place: THYROID LEFT LOBECTOMY, , [facility] [place] UTERINE POLYP REMOVED, , [facility] [place]. [place], [place], [place], TONSILECTOMY, [facility] [place] AND ADENOIDECTOMY Hx Anesthesia Reactions: No Infectious Disease History: No Infectious Disease History: Denies: Traveled Outside the [place] in Last 30 Days - Family History Known Family History: Positive: Other - NEG: per neighbor present in room, no [place] - Social History Alcohol Use: None Substance Use Type: Reports: None Smoking Status (MU): Never Smoked Tobacco Review of Systems Positive: Chest Pain Positive: Other - Positive upper back pain All Other Systems Reviewed And Are Negative: Yes Physical Exam Triage Information Reviewed: Yes Vital Signs On Initial Exam: Initial Vitals Temp Pulse Resp BP Pulse Ox 97.3 F 62 14 126/84 97 06/04/17 04:46 06/04/17 04:46 06/04/17 04:46 06/04/17 04:46 06/04/17 04:46 Vital Signs Reviewed: Yes Appearance: Positive: Well-Appearing, No Pain Distress Skin: Positive: Warm, Skin Color Reflects Adequate Perfusion, Dry Head/Face: Positive: Normal Head/Face Inspection Eyes: Positive: EOMI, KRISTIAN ENT: Positive: Normal ENT inspection Neck: Positive: Supple, Nontender Respiratory/Lung Sounds: Positive: Clear to Auscultation, Breath Sounds Present Cardiovascular: Positive: Pulses are Symmetrical in both Upper and Lower Extremities, IRR Abdomen Description: Positive: Nontender, Soft Bowel Sounds: Positive: Present Musculoskeletal: Positive: Normal, Strength/ROM Intact Neurological: Positive: Normal, Sensory/Motor Intact, Alert, Oriented to Person Place, Time - [place] Coma Scale Coma Scale Total: 15 Diagnostics - Vital Signs Vital Signs Temp Pulse Resp BP Pulse Ox 06/04/17 04:46 97.3 F 62 14 126/84 97 - Laboratory Lab Results: Lab Results 06/04/17 06/04/17 06/04/17 Range/Units 05:01 05:01 05:01 WBC 9.9 (3.5-10.8) 10^3/ul RBC 3.48 L (4.0-5.4) 10^6/ul Hgb 11.0 L (12.0-16.0) g/dl Hct 33 L (35-47) % MCV 95 (80-97) fL MCH 32 H (27-31) pg MCHC 33 (31-36) g/dl RDW 14 (10.5-15) % Plt Count 324 (150-450) 10^3/ul MPV 9 (7.4-10.4) um3 Neut % (Auto) 56.4 (38-83) % Lymph % (Auto) 36.1 (25-47) % Levy % (Auto) 5.6 (1-9) % Eos % (Auto) 1.6 (0-6) % Baso % (Auto) 0.3 (0-2) % Absolute Neuts (auto) 5.6 (1.5-7.7) 10^3/ul Absolute Lymphs (auto) 3.6 (1.0-4.8) 10^3/ul Absolute Monos (auto) 0.6 (0-0.8) 10^3/ul Absolute Eos (auto) 0.2 (0-0.6) 10^3/ul Absolute Basos (auto) 0 (0-0.2) 10^3/ul Absolute Nucleated RBC 0 10^3/ul Nucleated RBC % 0 INR (Anticoag Therapy) 0.99 (0.89-1.11) APTT 29.8 (26.0-36.3) seconds Sodium 131 L (133-145) mmol/L Potassium 3.8 (3.5-5.0) mmol/L Chloride 99 L (101-111) mmol/L Carbon Dioxide 26 (22-32) mmol/L Anion Gap 6 (2-11) mmol/L BUN 23 (6-24) mg/dL Creatinine 0.92 (0.51-0.95) mg/dL Est GFR ( Amer) 75.0 (>60) Est GFR (Non-Af Amer) 58.3 (>60) BUN/Creatinine Ratio 25.0 H (8-20) Glucose 115 H (70-100) mg/dL Lactic Acid (0.5-2.0) mmol/L Calcium 9.6 (8.6-10.3) mg/dL Total Bilirubin 0.50 (0.2-1.0) mg/dL AST 44 H (13-39) U/L ALT 78 H (7-52) U/L Alkaline Phosphatase 135 H (34-104) U/L Troponin I 0.02 (<0.04) ng/mL B-Natriuretic Peptide ( - 100) pg/mL Total Protein 6.0 L (6.4-8.9) g/dL Albumin 3.0 L (3.2-5.2) g/dL Globulin 3.0 (2-4) g/dL Albumin/Globulin Ratio 1.0 (1-3) 06/04/17 06/04/17 Range/Units 05:01 05:01 WBC (3.5-10.8) 10^3/ul RBC (4.0-5.4) 10^6/ul Hgb (12.0-16.0) g/dl Hct (35-47) % MCV (80-97) fL MCH (27-31) pg MCHC (31-36) g/dl RDW (10.5-15) % Plt Count (150-450) 10^3/ul MPV (7.4-10.4) um3 Neut % (Auto) (38-83) % Lymph % (Auto) (25-47) % Levy % (Auto) (1-9) % Eos % (Auto) (0-6) % Baso % (Auto) (0-2) % Absolute Neuts (auto) (1.5-7.7) 10^3/ul Absolute Lymphs (auto) (1.0-4.8) 10^3/ul Absolute Monos (auto) (0-0.8) 10^3/ul Absolute Eos (auto) (0-0.6) 10^3/ul Absolute Basos (auto) (0-0.2) 10^3/ul Absolute Nucleated RBC 10^3/ul Nucleated RBC % INR (Anticoag Therapy) (0.89-1.11) APTT (26.0-36.3) seconds Sodium (133-145) mmol/L Potassium (3.5-5.0) mmol/L Chloride (101-111) mmol/L Carbon Dioxide (22-32) mmol/L Anion Gap (2-11) mmol/L BUN (6-24) mg/dL Creatinine (0.51-0.95) mg/dL Est GFR ( Amer) (>60) Est GFR (Non-Af Amer) (>60) BUN/Creatinine Ratio (8-20) Glucose (70-100) mg/dL Lactic Acid 1.1 (0.5-2.0) mmol/L Calcium (8.6-10.3) mg/dL Total Bilirubin (0.2-1.0) mg/dL AST (13-39) U/L ALT (7-52) U/L Alkaline Phosphatase (34-104) U/L Troponin I (<0.04) ng/mL B-Natriuretic Peptide 115 H ( - 100) pg/mL Total Protein (6.4-8.9) g/dL Albumin (3.2-5.2) g/dL Globulin (2-4) g/dL Albumin/Globulin Ratio (1-3) Result Diagrams: 06/04/17 05:01 06/04/17 05:01 Lab Statement: Any lab studies that have been ordered have been reviewed, and results considered in the medical decision making process. - Radiology CXR Radiology Interpretation Completed By: ED Physician - NAD - CT CTA Chest CT Interpretation Completed By: Radiologist - positive pulmonary emboli on the left. No infarct seen. Subcentimeter renal lesion on the left as above suspicious for a small renal cell carcinoma. - EKG 0503 Cardiac Rate: NL - BPM 61 EKG Rhythm: Sinus Rhythm EKG Interpretation: RBBB Complex Multi-Symp Course/Dx Assessment/Plan: 81 year old F BIBA to the ED with a CC of CP since 229. The CC is described as heaviness. Patient took ASA and Tylenol ALTERATION SPECIALIST which did not relieve her symptoms. Pt reports upper back pain. CXR reveals NAD. CTA Chest reveals positive pulmonary emboli on the left. No infarct seen. Subcentimeter renal lesion on the left as above suspicious for a small renal cell carcinoma. We discussed patient care with Dr. Dorantes (hospitalist) for admission. Patient will be admitted to Dr. Dorantes. Pt is agreeable with this plan. - Diagnoses Provider Diagnoses: Chest pain, Pulmonary emboli - Physician Notifications Discussed Care Of Patient With: Yovanny Dorantes Time Discussed With Above Provider: 06:40 Instructed by Provider To: Other - Consulted Dr. Dorantes (hospitalist) who agrees to admit. Discharge - Discharge Plan Condition: Stable Disposition: ADMITTED TO [facility] Referrals: Davin Hinojosa MD [Primary Care Provider] - The documentation as recorded by the Jasiel keen Alfonso accurately reflects the service I personally performed and the decisions made by , Ross Monroe.
[2017-06-04] MEDS ORDERED: Heparin VIAL(*) 5000 UNITS/ML VIAL (FIVE THOUSAND) IV SCH (07:00)
[2017-06-04] MEDS: Metoprolol Tartrate TAB* 25 MG PO SCH (09:55)
[2017-06-04] MEDS: Rivaroxaban TAB(*) 15 MG PO SCH ×2 (09:56→21:02)
--- NOTE | 2017-06-04 11:48 | RAD ---
INDICATION: Chest pain COMPARISON: Most recent comparison chest x-rays dated May 29, 2017 TECHNIQUE: Single AP portable view of the chest was obtained. FINDINGS: Image quality is compromised due to the relative inferiority of a portable chest x-ray. There is mild cardiomegaly similar in appearance to the prior chest x-ray. The heart and mediastinum otherwise exhibit normal contours. The lungs are grossly clear. There is no evidence of a large pleural effusion. Visualized bones are normal for the patient's age. IMPRESSION: No radiographic evidence for acute cardiopulmonary abnormality on this portable chest x-ray.
--- NOTE | 2017-06-04 12:02 | RAD ---
STUDY: CT angiography of the chest, abdomen and pelvis. INDICATION: Chest and back pain that awoke the patient from sleep. Relevant surgical history includes partial thyroidectomy. COMPARISON: None. TECHNIQUE: Multidetector CT angiography of the chest, abdomen and pelvis were obtained from the lung apices to the ischial tuberosities after the intravenous injection of 100 mL of Visipaque 320. Reformats were created in the coronal and sagittal planes. 3-D vascular imaging was created from the source images and reviewed as well. ANGIOGRAPHIC FINDINGS: There is nonocclusive thrombus at the distal most portion of the left mainstem pulmonary artery extending into the superior segmental artery. (Axial image 55 of 257). The remaining pulmonary arteries appear to be free from thrombus. There is mild calcification at the arch of the aorta. There is no pathologic aneurysmal dilatation of the thoracic or abdominal aorta. Calcified atherosclerosis is seen at the infrarenal abdominal aorta above the bifurcation extending into the iliac arteries. In-line flow is recorded as far as the proximal femoral arteries bilaterally. The major branch vessels from the abdominal aorta exhibits varying degrees of calcified atherosclerosis at the origins but patency is maintained. NON ANGIOGRAPHIC FINDINGS: Chest: In keeping with the patient's reported surgical history the left lobe of the thyroid is absent. There is a small amount of abdominal plexuses along the anterior margin of the left lower lobe adjacent to the heart. Otherwise the lungs are clear. There are no large pleural effusions. There is no mediastinal or hilar lymphadenopathy. The heart is grossly normal in appearance. Abdomen \T\ Pelvis: The liver, spleen, pancreas and adrenal glands are grossly normal in appearance. The gallbladder is normal. Multiple fluid density cysts are seen bilaterally in the kidneys. Along the anterior aspect of the mid-level left kidney (image 147) there is a solid enhancing soft tissue structure extending from the cortex. The renal cortices otherwise enhance symmetrically and promptly on the arterial phase imaging. Evaluation of the gastrointestinal tract is limited in the absence of oral contrast. The small and large bowel are not distended. Scattered rectosigmoid diverticula are noted. There is no gross retroperitoneal or mesenteric lymphadenopathy. The pelvic viscera is normal in appearance for the patient's age. Multilevel degenerative changes of the thoracic and lumbar spine include loss of intervertebral disc height.There are no sinister bone lesions. IMPRESSION: 1. Nonocclusive pulmonary embolus involving the left lower lobar and segmental pulmonary arteries as described above. 2. Along the anterior margin of the left kidney there is a 1.1 cm enhancing soft tissue nodule. I recommend further characterization on nonemergent basis with either contrast-enhanced MRI or ultrasound examination of the left kidney. 3. Additional age-appropriate chronic, degenerative and iatrogenic changes as described in the body the report.
--- NOTE | 2017-06-04 16:38 | HP ---
CC: Dr. Hinojosa; Dr. Mosley; Dr. Mcdaniel HISTORY AND PHYSICAL: DATE OF ADMISSION: 06/04/17 PRIMARY CARE PROVIDER: Dr. Hinojosa. DIRECTOR OF FIELD COORDINATION: Dr. Mosley. UROLOGIST: Dr. Mcdaniel. CHIEF COMPLAINT: Chest and back pain. HISTORY OF PRESENT ILLNESS: Ms. Akers is an 81-year-old female who is admitted from 05/29/17 [facility] h 05/30/17 with atrial fibrillation and what was thought to be a viral illness. The patient states that at the onset of that admission, she had awakened from sleep with rapid respiratory rate and fee ling of fluttering in her chest. She also had some chest heaviness. When she presented to the [facility] room, she was found to be in rapid atrial fibrillation. She converted on her own to normal si nus rhythm. She states over the next couple of days, she began to feel a little bit better and that she was not having as many body aches. The patient states that yesterday afternoon, she was feelin g well. She states her appetite was improving. She went to bed like usual. She states that she wo ke up on the morning of admission at approximately 2:30 a.m. with complaints of back ache. She stat es that she has had continued chest discomfort that comes and goes. She denies any pain with deep b reath. She has noted a mild cough, but is not bringing up any sputum. She states her fever is esse ntially resolved. The patient does admit to a recent trip to [place] earlier this month. PAST MEDICAL HISTORY: 1. Hypertension. 2. History of PVCs. 3. Osteopenia. 4. History of Aide's thyroiditis, status post left partial thyroidectomy. PAST SURGICAL HISTORY: 1. Left partial thyroidectomy. 2. D and C. 3. Uterine polyp removal. 4. Bilateral cataract extractions. MEDICATIONS: 1. Aspirin 81 mg p.o. daily. 2. Metoprolol tartrate 25 mg p.o. daily. 3. Doxycycline 100 mg p.o. twice daily. ALLERGIES: No known drug allergies. FAMILY HISTORY: Mom at age of 103, she had diabetes. Dad of heart disease at the age of 87. SOCIAL HISTORY: The patient is a nonsmoker. She does not drink alcohol. She is a retired nurse. She is . She has 4 children. Her son, Fabrice, home phone number is [phone] and cell phone , is her healthcare proxy. REVIEW OF SYSTEMS: The patient denies fevers. She states her appetite has been poor though slowly improving. She admits to the chest discomfort as above. She denies any palpitations. She notes th at once she was in [place], her foot was swollen. She states this is now resolved. She admits to cough, but no sputum production. No shortness of breath. She has had some mild nausea. No abdomin al pain. She does admit to being constipated. No hematochezia. No hematuria. No dysuria. No str rafael-like symptoms. No sudden changes in vision. No dysphagia. She states her body aches had been i mproving, but are slightly worse now than they were yesterday. She does feel slightly dizzy. She s tates that she does have a rash that is fading that she notes on her legs and arms and back. She de nies any anxiety or depression. PHYSICAL EXAMINATION GENERAL: The patient is a well-developed, elderly female, sitting up on the stretcher, in no acute distress. VITAL SIGNS: Blood pressure 141/68, pulse 74, respirations 18, temp 97.8, and O2 sat is 100% on jeniffer m air. HEENT: Pupils are equal, they are round. There is evidence of prior cataract extractions. Extraoc ular muscles are intact. Oropharynx is clear. Oral mucosa is moist. There is no submandibular, ce rvical, or supraclavicular adenopathy. PULMONARY: Lungs are clear to auscultation bilaterally. CARDIAC: Normal S1 and S2. Regular rate and rhythm. I did not appreciate any murmurs. There is r ight greater than left lower extremity edema. ABDOMEN: Bowel sounds are present. Abdomen is soft, nontender, nondistended. MUSCULOSKELETAL: There is no cyanosis or clubbing of the digits. There is full active range of mot ion of all 4 extremities. NEURO: Cranial nerves II through XII are grossly intact. Sensation is intact to light touch throug hout. Strength is 5/5 and symmetric to both upper and lower extremities bilaterally. PSYCH: The patient is alert. She is oriented x3. Affect appears appropriate. SKIN: Warm. It is dry. There is a patchy erythematous rash on the patient's legs and faintly note d on the patient's back. DIAGNOSTIC STUDIES/LAB DATA: WBC 9.9, hemoglobin 11.0, hematocrit 33, platelets 324. INR 0.99. S odium 131, potassium 3.8, chloride 99, CO2 26, BUN 23, creatinine 0.92, glucose 115, lactic acid 1.1 , calcium 9.6. Bilirubin 0.5, AST 44, ALT 76, alk phos 135. Troponin 0.02. BNP 115. Albumin 3.0. Chest x-ray: No radiographic evidence for acute cardiopulmonary abnormality. EKG: Reveals normal sinus rhythm with inverted T waves in the anterior leads. Otherwise, no acute S T-T wave abnormalities. CTA chest, abdomen, and pelvis: Nonocclusive pulmonary embolus involving the left lower lobar and s egmental pulmonary arteries. Along the anterior margin of the left kidney, there is a 1.1-cm enhanc ing soft tissue nodule. It is recommended to obtain further characterization on a nonemergent basis of either a contrast enhanced MRI or ultrasound examination of the left kidney. Age-appropriate ch ronic degenerative and iatrogenic changes are noted. ASSESSMENT AND PLAN: Ms. Akers is an 81-year-old female, who was recently admitted on 05/29/17 thro [facility] 05/30/17 with rapid atrial fibrillation, who presents to the emergency room with complaints of b ack and chest pain and was found to have pulmonary embolus in the left lung. 1. Pulmonary embolism. I am suspicious the patient may have in fact had a pulmonary embolism at th e time of her prior hospitalization. She does give history of a long distance travel to [facility] this month. Additionally, she notes that her right leg/foot was swollen at the time of that t rip. It is possible the pulmonary embolism led to her atrial fibrillation that she presented with l ast hospitalization as well as the mildly elevated troponins at that point. Currently, the patient is completely hemodynamically stable. She was started on heparin drip in the emergency room; [place] romo, this will be converted to Xarelto after the patient and I discussed options of anticoagulation in cluding Coumadin versus Xarelto or Eliquis. The patient will be monitored overnight on telemetry. At this point, I am going to hold off on ordering another echo as she did have an echocardiogram on 05/29/17, which revealed global left ventricular wall motion and contractility to be within normal l imits. The ejection fraction was estimated to be 55% to 60%. The right ventricular global systolic function was normal. No pulmonary hypertension was identified. If the patient begins to develop he modynamic compromise, I will go ahead and repeat echocardiogram. Most likely, the patient will be a ble to be discharged tomorrow morning. 2. Hypertension. The patient will be maintained on her usual dose of metoprolol. 3. DVT prophylaxis. According to the Adult Thrombosis Prophylaxis Risk Factor Assessment Guide, th e patient has a total risk factor score of 7, making her high risk. Xarelto will be utilized as her DVT prophylaxis. 4. Code status is full. TIME SPENT: Sixty minutes was spent admitting this patient. [id number]/[facility] #: [id number]
--- NOTE | 2017-06-04 17:29 | RAD ---
HISTORY: Pulmonary embolism TECHNIQUE: Multiple transverse and longitudinal ultrasound images were obtained of the veins of the bilateral lower extremities using grayscale, color Doppler, and spectral Doppler imaging with and without compression and with augmentation. FINDINGS: VEINS: The common femoral vein, deep femoral vein, femoral vein and popliteal vein are compressible throughout their course, with normal flow on color Doppler imaging and normal response to augmentation on spectral Doppler imaging. The deeper of the peroneal right peroneal artery exhibits accident color flow with echogenic material in the lumen. Similarly, there is absence of flow in the left peroneal artery is well. SOFT TISSUES: Grossly normal. No large popliteal fossa cyst was identified. IMPRESSION: 1. No sonographic evidence of femoropopliteal deep vein thrombosis. 2. Occlusive thrombus is identified in the bilateral peroneal veins.
[2017-06-04] MEDS ORDERED: Aspirin Low Dose CHEW TAB* 81 MG PO SCH (21:00)
[2017-06-04] MEDS: DOXYcycline CAP(*) 100 MG PO SCH (21:01)
[2017-06-05] MEDS: Acetaminophen TAB* 325 MG PO PRN ×2 (03:29→08:39)
[2017-06-05] MEDS: DOXYcycline CAP(*) 100 MG PO SCH (08:32)
[2017-06-05] MEDS: Metoprolol Tartrate TAB* 25 MG PO SCH (08:32)
[2017-06-05] MEDS: Rivaroxaban TAB(*) 15 MG PO SCH (08:32)
[2017-06-05 12:24] VITALS: BP 126/66
--- NOTE | 2017-06-05 13:25 | PN ---
Objective Active Medications: Acetaminophen (Tylenol Tab*) 650 mg PO Q4H PRN PRN Reason: FEVER/PAIN Last Admin: 06/05/17 08:39 Dose: 650 mg Aspirin (Aspirin Low Dose Tab*) 81 mg PO BEDTIME [facility] Last Admin: 06/04/17 21:01 Dose: 81 mg Doxycycline Hyclate (Vibramycin Cap(*)) 100 mg PO BID [facility] Last Admin: 06/05/17 08:32 Dose: 100 mg Metoprolol Tartrate (Lopressor Tab*) 25 mg PO DAILY [facility] Last Admin: 06/05/17 08:32 Dose: 25 mg Rivaroxaban (Xarelto(*)) 15 mg PO BID [facility] Last Admin: 06/05/17 08:32 Dose: 15 mg Vital Signs 06/04/17 06/04/17 06/04/17 14:00 15:00 15:15 Temperature 98.4 F Pulse Rate 69 Respiratory 19 17 17 Rate Blood Pressure 127/63 (mmHg) O2 Sat by Pulse 99 Oximetry 06/04/17 06/04/17 06/04/17 16:00 16:15 17:00 Temperature Pulse Rate Respiratory 14 13 44 Rate Blood Pressure (mmHg) O2 Sat by Pulse Oximetry 06/04/17 06/04/17 06/04/17 18:00 19:00 19:33 Temperature 98.4 F Pulse Rate 71 Respiratory 16 15 17 Rate Blood Pressure 151/74 (mmHg) O2 Sat by Pulse 100 Oximetry 06/04/17 06/04/17 06/04/17 20:00 21:00 22:00 Temperature Pulse Rate Respiratory 14 17 15 Rate Blood Pressure (mmHg) O2 Sat by Pulse Oximetry 06/04/17 06/04/17 06/05/17 23:00 23:29 00:00 Temperature 97.9 F Pulse Rate 68 Respiratory 14 20 13 Rate Blood Pressure 145/61 (mmHg) O2 Sat by Pulse 98 Oximetry 06/05/17 06/05/17 06/05/17 01:00 02:00 03:00 Temperature Pulse Rate Respiratory 14 19 2 Rate Blood Pressure (mmHg) O2 Sat by Pulse Oximetry 06/05/17 06/05/17 06/05/17 03:45 04:00 05:00 Temperature 98.5 F Pulse Rate 68 Respiratory 20 0 13 Rate Blood Pressure 139/60 (mmHg) O2 Sat by Pulse Oximetry 06/05/17 06/05/17 06/05/17 06:00 07:00 07:14 Temperature 97.7 F Pulse Rate 63 Respiratory 12 18 16 Rate Blood Pressure 137/59 (mmHg) O2 Sat by Pulse 99 Oximetry 06/05/17 06/05/17 06/05/17 08:00 09:00 10:00 Temperature Pulse Rate Respiratory 15 16 19 Rate Blood Pressure (mmHg) O2 Sat by Pulse Oximetry 06/05/17 11:13 Temperature 98.4 F Pulse Rate 57 Respiratory 16 Rate Blood Pressure 126/66 (mmHg) O2 Sat by Pulse 99 Oximetry Result Diagrams: 06/04/17 05:01 06/04/17 05:01 Additional Lab and Data: Lab Results 06/04/17 06/04/17 06/04/17 Range/Units 05:01 05:01 05:01 WBC 9.9 (3.5-10.8) 10^3/ul RBC 3.48 L (4.0-5.4) 10^6/ul Hgb 11.0 L (12.0-16.0) g/dl Hct 33 L (35-47) % MCV 95 (80-97) fL MCH 32 H (27-31) pg MCHC 33 (31-36) g/dl RDW 14 (10.5-15) % Plt Count 324 (150-450) 10^3/ul MPV 9 (7.4-10.4) um3 Neut % (Auto) 56.4 (38-83) % Lymph % (Auto) 36.1 (25-47) % [place] % (Auto) 5.6 (1-9) % Eos % (Auto) 1.6 (0-6) % Baso % (Auto) 0.3 (0-2) % Absolute Neuts (auto) 5.6 (1.5-7.7) 10^3/ul Absolute Lymphs (auto) 3.6 (1.0-4.8) 10^3/ul Absolute Monos (auto) 0.6 (0-0.8) 10^3/ul Absolute Eos (auto) 0.2 (0-0.6) 10^3/ul Absolute Basos (auto) 0 (0-0.2) 10^3/ul Absolute Nucleated RBC 0 10^3/ul Nucleated RBC % 0 INR (Anticoag Therapy) 0.99 (0.89-1.11) APTT 29.8 (26.0-36.3) seconds Sodium 131 L (133-145) mmol/L Potassium 3.8 (3.5-5.0) mmol/L Chloride 99 L (101-111) mmol/L Carbon Dioxide 26 (22-32) mmol/L Anion Gap 6 (2-11) mmol/L BUN 23 (6-24) mg/dL Creatinine 0.92 (0.51-0.95) mg/dL Est GFR ( Amer) 75.0 (>60) Est GFR (Non-Af Amer) 58.3 (>60) BUN/Creatinine Ratio 25.0 H (8-20) Glucose 115 H (70-100) mg/dL Lactic Acid (0.5-2.0) mmol/L Calcium 9.6 (8.6-10.3) mg/dL Total Bilirubin 0.50 (0.2-1.0) mg/dL AST 44 H (13-39) U/L ALT 78 H (7-52) U/L Alkaline Phosphatase 135 H (34-104) U/L Troponin I 0.02 (<0.04) ng/mL B-Natriuretic Peptide ( - 100) pg/mL Total Protein 6.0 L (6.4-8.9) g/dL Albumin 3.0 L (3.2-5.2) g/dL Globulin 3.0 (2-4) g/dL Albumin/Globulin Ratio 1.0 (1-3) 06/04/17 06/04/17 Range/Units 05:01 05:01 WBC (3.5-10.8) 10^3/ul RBC (4.0-5.4) 10^6/ul Hgb (12.0-16.0) g/dl Hct (35-47) % MCV (80-97) fL MCH (27-31) pg MCHC (31-36) g/dl RDW (10.5-15) % Plt Count (150-450) 10^3/ul MPV (7.4-10.4) um3 Neut % (Auto) (38-83) % Lymph % (Auto) (25-47) % Wallace % (Auto) (1-9) % Eos % (Auto) (0-6) % Baso % (Auto) (0-2) % Absolute Neuts (auto) (1.5-7.7) 10^3/ul Absolute Lymphs (auto) (1.0-4.8) 10^3/ul Absolute Monos (auto) (0-0.8) 10^3/ul Absolute Eos (auto) (0-0.6) 10^3/ul Absolute Basos (auto) (0-0.2) 10^3/ul Absolute Nucleated RBC 10^3/ul Nucleated RBC % INR (Anticoag Therapy) (0.89-1.11) APTT (26.0-36.3) seconds Sodium (133-145) mmol/L Potassium (3.5-5.0) mmol/L Chloride (101-111) mmol/L Carbon Dioxide (22-32) mmol/L Anion Gap (2-11) mmol/L BUN (6-24) mg/dL Creatinine (0.51-0.95) mg/dL Est GFR ( Amer) (>60) Est GFR (Non-Af Amer) (>60) BUN/Creatinine Ratio (8-20) Glucose (70-100) mg/dL Lactic Acid 1.1 (0.5-2.0) mmol/L Calcium (8.6-10.3) mg/dL Total Bilirubin (0.2-1.0) mg/dL AST (13-39) U/L ALT (7-52) U/L Alkaline Phosphatase (34-104) U/L Troponin I (<0.04) ng/mL B-Natriuretic Peptide 115 H ( - 100) pg/mL Total Protein (6.4-8.9) g/dL Albumin (3.2-5.2) g/dL Globulin (2-4) g/dL Albumin/Globulin Ratio (1-3) Assess/Plan/Problems-Billing Assessment: - Patient Problems (1) Pulmonary embolism Current Visit: Yes Status: Acute Code(s): I26.99 - OTHER PULMONARY EMBOLISM WITHOUT ACUTE COR PULMONALE SNOMED Code(s): 17359181 Comment: Will change to lovenox bridging to coumadin as both xarelto and elquis require prior authorizations. She will need INR on 06/07/17. We reviewed when/if she should come back to the hospital including worsened pain, SOB or hemoptysis. She was also found to have B/L below knee DVTs.
--- NOTE | 2017-06-06 15:14 | DS ---
CC: Dr. Hinojosa * DISCHARGE SUMMARY: DATE OF ADMISSION: 06/04/17 DATE OF DISCHARGE: 06/05/17 PRIMARY CARE PROVIDER: Dr. Hinojosa. PRINCIPAL DIAGNOSES: 1. Left-sided pulmonary embolism. 2. Bilateral below knee deep venous thrombosis. SECONDARY DIAGNOSES: 1. Hypertension. 2. Recent hospitalization where atrial fibrillation was identified. 3. History of Aide's thyroiditis. DISCHARGE MEDICATIONS: 1. Metoprolol tartrate 25 mg p.o. daily. 2. Doxycycline 100 mg p.o. twice daily to complete the course of therapy started at home. 3. Coumadin 5 mg p.o. daily. 4. Lovenox 70 mg subcutaneous twice daily until INR is between 2 to 3. Discontinued medications: 1. Aspirin. HOSPITAL COURSE: Ms. Akers is an 81-year-old female who was recently admitted from 05/29/17 through 05/30/17 with what was felt to be a viral illness and atrial fibrillation. At that time, the patient was ultimately discharged home to continue on her aspirin and metoprolol. The patient represented to the emergency room on 06/04/17 with complaints of back pain as well as chest discomfort. The patient underwent CTA of the chest which revealed a left-sided pulmonary embolism. The patient was initially started on heparin drip, however , after patient and I discussed her oral option, a decision was made to start her on Xarelto. On the day of discharge, the patient is feeling well. She continued to agree with treatment with Xarelto; however, when I checked with her pharmacy, it became clear that the patient will need a prior authorization for this. The patient wished to be discharged to home from hospital, therefore , she will be started on Lovenox 70 mg subcutaneously twice daily bridging to Coumadin. The patient will be started on Coumadin 5 mg p.o. daily starting tonight. The patient will need a followup INR on 06/07/17. The patient has already an appointment scheduled with Dr. Tavares for 06/08/17, and I have encouraged her to keep this appointment. Of note, on admission, the patient's CTA also included the abdomen and pelvis. The CT of the abdomen revealed a 1.1 cm enhancing soft tissue nodule on the anterior margin of the left kidney. It is recommended to have further characterization on an nonemergent basis with either a contrast enhanced MRI or an ultrasound examination of the left kidney to further evaluate this nodule. On the day of discharge, the patient was awake, alert and oriented, sitting up in bed, appearing to be in no acute distress. Her vital signs are stable with good blood pressure control and heart rate. She is afebrile. She is 99% on room air. The patient's cardiac exam revealed a normal S1 and S2 with a regular rate and rhythm. Her lungs were clear to auscultation bilaterally. The patient does have trace to 1+ bilateral lower extremity edema. Again, the patient is stable for discharge to home today. FOLLOWUP CONCERNS: The patient is being discharged home today, 06/05/17. ACTIVITY LEVEL: As tolerated. DIET: Regular. CONDITION ON DISCHARGE: Stable. TIME SPENT: Thirty-five minutes was spent discharging this patient. [id number]/CPS #: [id number] MTDD
== END 2017-06-05 14:35 | disposition home or self-care (01) ==
LOC: ED 04:41 → MEDTELE 07:56
PROVIDERS: ADMIT Hospitalist; ATTEND Hospitalist
DX: I26.99 Other pulmonary embolism without acute cor pulmonale (principal); I82.4Z3 Acute embolism and thrombosis of unspecified deep veins of distal lower extremity, bilateral; I10 Essential (primary) hypertension; I48.91 Unspecified atrial fibrillation; E06.3 Autoimmune thyroiditis; R07.9 Chest pain, unspecified; Z79.01 Long term (current) use of anticoagulants; Z79.899 Other long term (current) drug therapy
CPT/HCPCS: 36415; 71010; 71275; 74174; 80053; 83605; 83880; 84484; 85025; 85610; 85730; 93005; 93970; 96365; 96375; 99283; A9270-GY; G0378; J1644; Q9967

== ENCOUNTER 2017-06-06 07:52 | Emergency (ER) | payer MEDICARE ==
[2017-06-06 07:58] VITALS: BP 148/71
[2017-06-06 08:18] LABS: Add Diff/Slide Review? Slide Review Added; Comments Flag Yes; Hematocrit 35 % (35-47); Hemoglobin 11.8 g/dl (12.0-16.0); Mean Corpuscular HGB Conc 34 g/dl (31-36); Mean Corpuscular Hemoglobin 33 pg (27-31); Mean Corpuscular Volume 96 fL (80-97); Mean Platelet Volume 8 um3 (7.4-10.4); Red Blood Count 3.63 10^6/ul (4.0-5.4); Red Cell Distribution Width 14 % (10.5-15); White Blood Count 8.9 10^3/ul (3.5-10.8)
[2017-06-06 08:34] LABS: Albumin 3.2 g/dL (3.2-5.2); BUN/Creatinine Ratio 19.8 (8-20); Globulin 3.4 g/dL (2-4); Potassium 3.8 mmol/L (3.5-5.0); Total Bilirubin 0.5 mg/dL (0.2-1.0); Total Protein 6.6 g/dL (6.4-8.9)
[2017-06-06 08:37] LABS: Troponin I 0.01 ng/mL (<0.04)
--- NOTE | 2017-06-06 09:09 | RAD ---
Indication: Facial droop on the right. CT of the brain was performed without IV contrast. Ventricular structures are midline. No midline shift is noted. The extra-axial spaces are unremarkable. There is no evidence of intracranial mass or hemorrhage. No other high or low density lesions are identified. Mastoid air cells and paranasal sinuses are otherwise unremarkable. IMPRESSION: There is no intracranial mass or hemorrhage.
[2017-06-06 10:08] LABS: Urine Bilirubin Negative (Negative); Urine Glucose Negative (Negative); Urine Nitrite Negative (Negative)
--- NOTE | 2017-06-06 11:51 | RAD ---
Indication: LEFT facial droop. Comparison: June 06, 2017 CT Technique: ProtoExchange [place] 1.5 Miriam [id number] with GEM suite. MRI brain without contrast. Report: Diffusion series is negative for acute or subacute ischemia. Susceptibility series is negative for stigmata of hemosiderin deposition to indicate previous hemorrhage. Unremarkable cerebral sulci, ventricles, and basal cisterns for age. Normal variant mildly prominent perivascular spaces. A few nonspecific periventricular and subcortical white matter hyperintensities are noted at the bilateral cerebral hemispheres without mass effect. No intra or extra-axial fluid collection evident. Preserved major intracranial flow-voids. Unremarkable orbital contents. No suspicious calvarial or skull base lesions evident. Clear paranasal sinuses and mastoid air spaces. IMPRESSION: 1. No evidence for acute or subacute ischemia. Negative for suspicious intraosseous or extra-axial lesions or mass effect. 2. Mild burden of nonspecific white matter hyperintensities on FLAIR/T2 series. While nonspecific disease these lesions most likely represent foci of chronic small vessel ischemic disease.
[2017-06-06] MEDS ORDERED: Doxycycline (NF) 100 MG TAB PO ONE (14:43)
[2017-06-06] MEDS ORDERED: Enoxaparin(*) 80 MG/0.8 ML SYR SUBCUT ONE (15:26)
--- NOTE | 2017-06-06 15:30 | ED ---
Babs Wright Edward, scribed for Deja Obregon MD on 06/06/17 at 0802 . Neurological HPI - HPI Summary HPI Summary: 81 y/o female BIBA c/o numbness and weakness in the L side of the face starting at 06:00 this morning. Pt woke up at 03:30 this morning. Pt states she is unable to close her L eye. No hearing deficiency, no weakness in upper extremities. PMHx AFIB, HTN, mild HLD. Pt lives alone. Earlier this month the pt had a MARTIN and was dx with Lyme Disease, and has been on Doxy for 2 weeks. Pt was also recently admitted for PE and released yesterday. Past medications reviewed on visit. - History of Current Complaint Stated Complaint: WEAKNESS, DIZZY Hx Obtained From: Patient Onset/Duration: Sudden Onset, Started hours ago - 06:00 this morning, Still Present Timing: Constant Neurological Deficit Location: Facial - L face Character: Numbness/Tingling - L face, Other: - No hearing deficiency, no weakness in upper extremities - Additional Pertinent History Primary Care Physician: MADELEINE - Allergy/Home Medications Allergies/Adverse Reactions: Allergies Allergy/AdvReac Type Severity Reaction Status Date / Time No Known Allergies Allergy Verified 12/27/12 07:23 PMH/Surg Hx/FS Hx/Imm Hx Previously Healthy: No Endocrine/Hematology History: Reports: Hx Thyroid Disease - THYROIDECTOMY- HASHIMOTOS, Hx Anemia - SLIGHT IN THE PAST, Other Endocrine/Hematological Disorders Cardiovascular History: Reports: Hx Atrial Fibrillation, Hx Deep Vein Thrombosis - 06/04/17, Hx Embolism - 06/04/17, Hx Hypercholesterolemia, Hx Hypertension - ON MEDS, Hx Valvular Heart Disease - AORTIC VALVE LEAKAGE, Other Cardiovascular Problems/Disorders - A fib/PE, Heart cath 07 Respiratory History: Denies: Hx Asthma, Hx Chronic Obstructive Pulmonary Disease (COPD), Hx Pneumonia, Other Respiratory Problems/Disorders GI History: Denies: Hx Gastroesophageal Reflux Disease, Hx Gastrointestinal Bleed History: Reports: Other Problems/Disorders - renal cysts Musculoskeletal History: Reports: Hx Arthritis Denies: Hx Osteoporosis Sensory History: Reports: Hx Cataracts, Hx Contacts or Glasses - GLASSES Denies: Hx Hearing Aid Opthamlomology History: Reports: Hx Cataracts, Hx Contacts or Glasses - GLASSES Neurological History: Denies: Hx Migraine, Hx Seizures, Hx Transient Ischemic Attacks (TIA), Other Neuro Impairments/Disorders - Cancer History Hx Chemotherapy: No Hx Radiation Therapy: No - Surgical History Surgery Procedure, Year, and Place: THYROID LEFT LOBECTOMY, , [facility] [place]. UTERINE POLYP REMOVED, , [facility] [place]. [place], [place], [place]. 1930S, TONSILECTOMY, [facility] [place] AND ADENOIDECTOMY. Heart cath 2006 Hx Anesthesia Reactions: No - Family History Known Family History: Negative: Cardiac Disease - No HI - Social History Alcohol Use: None Substance Use Type: Reports: None Smoking Status (MU): Never Smoked Tobacco Review of Systems Constitutional: Negative Eyes: Negative ENT: Negative Cardiovascular: Negative Respiratory: Negative Gastrointestinal: Negative Genitourinary: Negative Musculoskeletal: Negative Skin: Negative Neurological: Other - No weakness in upper extremities, no hearing deficiency Positive: Numbness - L face Psychological: Normal All Other Systems Reviewed And Are Negative: Yes Physical Exam Triage Information Reviewed: Yes Vital Signs On Initial Exam: Initial Vitals Temp Pulse Resp BP Pulse Ox 97.8 F 72 20 148/71 98 06/06/17 07:55 06/06/17 07:55 06/06/17 07:55 06/06/17 07:55 06/06/17 07:55 Vital Signs Reviewed: Yes Appearance: Positive: Well-Appearing, No Pain Distress Skin: Positive: Warm, Skin Color Reflects Adequate Perfusion, Dry Eyes: Positive: EOMI, KRISTIAN ENT: Positive: Pharynx normal, TMs normal Neck: Positive: Supple, Nontender Respiratory/Lung Sounds: Positive: Clear to Auscultation, Breath Sounds Present. Negative: Rales, Rhonchi, Wheezes Cardiovascular: Positive: RRR, Other - No gallop. Negative: Murmur, Rub Abdomen Description: Positive: Nontender, Soft, Other: - No rebound. Negative: Distended, Guarding Bowel Sounds: Positive: Present Musculoskeletal: Positive: Strength/ROM Intact. Negative: Edema Left, Edema Right Neurological: Positive: Sensory/Motor Intact, Alert, Oriented to Person Place, Time, CN Intact II-III Psychiatric: Positive: Affect/Mood Appropriate Diagnostics - Vital Signs Vital Signs Temp Pulse Resp BP Pulse Ox 06/06/17 08:09 98 06/06/17 07:55 97.8 F 72 20 148/71 98 - Laboratory Lab Results: Lab Results 06/06/17 06/06/17 06/06/17 Range/Units 08:05 08:05 08:05 WBC 8.9 (3.5-10.8) 10^3/ul RBC 3.63 L (4.0-5.4) 10^6/ul Hgb 11.8 L (12.0-16.0) g/dl Hct 35 (35-47) % MCV 96 (80-97) fL MCH 33 H (27-31) pg MCHC 34 (31-36) g/dl RDW 14 (10.5-15) % Plt Count 376 (150-450) 10^3/ul MPV 8 (7.4-10.4) um3 Neut % (Auto) 43.1 (38-83) % Lymph % (Auto) 47.8 H (25-47) % [place] % (Auto) 6.3 (1-9) % Eos % (Auto) 1.4 (0-6) % Baso % (Auto) 1.4 (0-2) % Absolute Neuts (auto) 3.9 (1.5-7.7) 10^3/ul Absolute Lymphs (auto) 4.3 (1.0-4.8) 10^3/ul Absolute Monos (auto) 0.6 (0-0.8) 10^3/ul Absolute Eos (auto) 0.1 (0-0.6) 10^3/ul Absolute Basos (auto) 0.1 (0-0.2) 10^3/ul Absolute Nucleated RBC 0.01 10^3/ul Nucleated RBC % 0.1 INR (Anticoag Therapy) 1.24 H (0.89-1.11) Sodium 132 L (133-145) mmol/L Potassium 3.8 (3.5-5.0) mmol/L Chloride 100 L (101-111) mmol/L Carbon Dioxide 27 (22-32) mmol/L Anion Gap 5 (2-11) mmol/L BUN 17 (6-24) mg/dL Creatinine 0.86 (0.51-0.95) mg/dL Est GFR ( Amer) 81.0 (>60) Est GFR (Non-Af Amer) 63.0 (>60) BUN/Creatinine Ratio 19.8 (8-20) Glucose 114 H (70-100) mg/dL Lactic Acid (0.5-2.0) mmol/L Calcium 10.0 (8.6-10.3) mg/dL Total Bilirubin 0.50 (0.2-1.0) mg/dL AST 29 (13-39) U/L ALT 55 H (7-52) U/L Alkaline Phosphatase 123 H (34-104) U/L Troponin I 0.01 (<0.04) ng/mL Total Protein 6.6 (6.4-8.9) g/dL Albumin 3.2 (3.2-5.2) g/dL Globulin 3.4 (2-4) g/dL Albumin/Globulin Ratio 0.9 L (1-3) Urine Color Urine Appearance Urine pH (5-9) Ur Specific [place] (1.010-1.030) Urine Protein (Negative) Urine Ketones (Negative) Urine Blood (Negative) Urine Nitrate (Negative) Urine Bilirubin (Negative) Urine Urobilinogen (Negative) Ur Leukocyte Esterase (Negative) Urine Glucose (Negative) 06/06/17 06/06/17 Range/Units 08:05 09:55 WBC (3.5-10.8) 10^3/ul RBC (4.0-5.4) 10^6/ul Hgb (12.0-16.0) g/dl Hct (35-47) % MCV (80-97) fL MCH (27-31) pg MCHC (31-36) g/dl RDW (10.5-15) % Plt Count (150-450) 10^3/ul MPV (7.4-10.4) um3 Neut % (Auto) (38-83) % Lymph % (Auto) (25-47) % [place] % (Auto) (1-9) % Eos % (Auto) (0-6) % Baso % (Auto) (0-2) % Absolute Neuts (auto) (1.5-7.7) 10^3/ul Absolute Lymphs (auto) (1.0-4.8) 10^3/ul Absolute Monos (auto) (0-0.8) 10^3/ul Absolute Eos (auto) (0-0.6) 10^3/ul Absolute Basos (auto) (0-0.2) 10^3/ul Absolute Nucleated RBC 10^3/ul Nucleated RBC % INR (Anticoag Therapy) (0.89-1.11) Sodium (133-145) mmol/L Potassium (3.5-5.0) mmol/L Chloride (101-111) mmol/L Carbon Dioxide (22-32) mmol/L Anion Gap (2-11) mmol/L BUN (6-24) mg/dL Creatinine (0.51-0.95) mg/dL Est GFR ( Amer) (>60) Est GFR (Non-Af Amer) (>60) BUN/Creatinine Ratio (8-20) Glucose (70-100) mg/dL Lactic Acid 0.9 (0.5-2.0) mmol/L Calcium (8.6-10.3) mg/dL Total Bilirubin (0.2-1.0) mg/dL AST (13-39) U/L ALT (7-52) U/L Alkaline Phosphatase (34-104) U/L Troponin I (<0.04) ng/mL Total Protein (6.4-8.9) g/dL Albumin (3.2-5.2) g/dL Globulin (2-4) g/dL Albumin/Globulin Ratio (1-3) Urine Color Yellow Urine Appearance Clear Urine pH 6.0 (5-9) Ur Specific [place] 1.012 (1.010-1.030) Urine Protein Negative (Negative) Urine Ketones Negative (Negative) Urine Blood Negative (Negative) Urine Nitrate Negative (Negative) Urine Bilirubin Negative (Negative) Urine Urobilinogen Negative (Negative) Ur Leukocyte Esterase Negative (Negative) Urine Glucose Negative (Negative) Result Diagrams: 06/06/17 08:05 06/06/17 08:05 Lab Statement: Any lab studies that have been ordered have been reviewed, and results considered in the medical decision making process. - CT BRAIN CT CT Interpretation: No Acute Changes - No intracranial mass or hemorrhage CT Interpretation Completed By: Radiologist - EKG 1 Cardiac Rate: NL EKG Rhythm: Sinus Rhythm - @ 62 bpm EKG Interpretation: 08:17 - T wave inversions, anterior leads EKG Comparison: No Significant Change - From 06/04/17 - Additional Comments Diagnostic Additional Comments: BRAIN MRI - NO ACUTE CHANGES - 1. No evidence for acute or subacute ischemia. Negative for suspicious intraosseous or extra-axial lesions or mass effect. 2. Mild burden of nonspecific white matter hyperintensities on FLAIR/T2 series. While nonspecific disease these lesions most likely represent foci of chronic small vessel ischemic disease. Interpreted by Radiologist. NIH Scale - NIH Scale Level of Consciousness: Alert/Keenly Responsive Ask Patient the Month and His/Her Age: Both Correct Ask Pt to Open/Close Eyes and Claim Processor/Release Non-Paretic Hand: Both Correctly Best Gaze (Only Horizontal Eye Movement): Normal Visual Field Testing: No Visual Loss Facial Paresis-Pt to Smile & Close Eyes or Grimace Symmetry: Minor Paralysis - L sided facial droop Motor Function - Right Arm: No Drift-Holds 10 Seconds Motor Function - Left Arm: No Drift-Holds 10 Seconds Motor Function - Right Leg: No Drift-Holds 10 Seconds Motor Function - Left Leg: No Drift-Holds 10 Seconds Limb Ataxia-Must be out of Proportion to Weakness Present: Absent Sensory (Use Pinprick to Test Arms/Legs/Trunk/Face): Normal Best Language (Describe Picture, Name Items): No Aphasia Extinction and Inattention: No Abnormality Course/Dx - Course Assessment/Plan: Discussed patient care with Dr. Brie Whitmore. Will wait on CT results to decide further assessment. Discussed CT results with Dr. Michelle Gallardo, who suggests pt receive an MRI. MRI neg for acute issues pt seen by Paulina who advised pt to get artificial tears and asked that pt be prescribed acyclovir - Diagnoses Provider Diagnoses: Stewart's palsy - Physician Notifications Discussed Care Of Patient With: Michelle Gallardo Time Discussed With Above Provider: 13:00 Instructed by Provider To: MD Will See In ED Discharge - Discharge Plan Condition: Stable Disposition: HOME The documentation as recorded by the Babs keen Edward accurately reflects the service I personally performed and the decisions made by , Deja Obregon MD.
--- NOTE | 2017-06-07 02:31 | CONS ---
CC: Davin Hinojosa MD, [facility] * CONSULTATION REPORT: DATE OF CONSULT: 06/06/17 - EMERGENCY DEPT REQUESTING PHYSICIAN: Dr. Deja Obregon. HISTORY OF PRESENT ILLNESS: Stephani Akers is an 81-year-old woman with a history of hypertension, pulmonary embolism, atrial fibrillation, Aide's thyroiditis status post partial thyroidectomy, osteopenia, D and C, uterine polyp removal, bilateral cataract repair who presents to hospital with left facial weakness. Her history begins around 05/09/17 when she noticed a tick here in [facility] and removed it. She then travelled to [place], [place] from 05/10/17 to 05/17/17. She started noticing her right foot was swollen on that trip. After she returned, she developed headaches behind and near her left ear in mid May. She occasionally had a slight dizzy, unsteady sensation. She went to the emergency room on 05/29/17, 05/30/17 and was diagnosed with atrial fibrillation and possible virus. She after discharge developed multifocal rash and patches, the one on the back shaped a horseshoe and was started on doxycycline at [facility]. She was readmitted on 06/04/17 with findings of a pulmonary embolism in the left lower lobe and on her scan was also noted to have a 1.1 cm soft tissue nodule near her left kidney. This morning, she awoke and she had weakness on the left side of her face noticing that her eye was not moving right and her mouth was not moving right and it was close to numb on the left hand side, she proceeded to come into the emergency room and is accompanied by her neighbor. PAST MEDICAL/SURGICAL HISTORY: Includes: 1. Hypertension. 2. PVC. 3. Atrial fibrillation. 4. Pulmonary embolism. 5. A 1.1 cm soft tissue nodule near left kidney discovered in scan this past weekend and evaluation of pulmonary embolism. 6. Osteopenia. 7. Aide's thyroiditis, status post partial thyroidectomy. 8. D and C. 9. Uterine polyp removal. 10. Bilateral cataract repair. CURRENT MEDICATIONS: Include: 1. Lovenox 70 mg subcu q.12 hours. 2. Warfarin 5 mg p.o. q.h.s., which is yet to be started. 3. Metoprolol 25 mg p.o. daily. 4. Doxycycline 100 mg p.o. b.i.d. 5. She had prior to recent admissions been on calcium and multivitamin, aspirin 81 mg and amlodipine, which had been stopped. She tells me the amlodipine was stopped secondary to blood pressure getting low during admission. ALLERGIES: She has no known drug allergies. FAMILY HISTORY: Includes mother who at 103 with diabetes. She had peripheral vascular disease. Father at 85 of heart problems. Brother with diabetes. Sister with chronic leukemia. Four children among whom one has rheumatic heart disease. SOCIAL HISTORY: Ms. Akers lives by herself. She is a . She does not smoke or drink alcohol or use any illicit drugs. REVIEW OF SYSTEMS: There has been chronic cough, which has been around the period of time since she has been diagnosed with pulmonary embolism; however, she believes it started even earlier. There were palpitations on the setting of atrial fibrillation. She denies any chest pain. There was a rash as noted above. She has had no new bowel or bladder changes. No mood changes. There has been no known high fevers for unknown reason. Please see HPI and past medical history for further positive review of systems. PHYSICAL EXAMINATION: On examination, most recent vitals include temperature 97.8 degrees Fahrenheit, pulse 72, respiratory rate 20, saturation 98%, blood pressure 148/71. She had a regular cardiac rhythm. Lungs were clear to auscultation. There was no carotid bruit. No rashes were noted. She did have peripheral edema 1+ at her ankles with sock line noted and posterior tibialis and dorsalis pedis pulses were present. She was awake, alert, articulate. Had normal language function, adequate fund of knowledge. Her pupils were equal and responsive to light. Her fundi were flat. She had full extraocular movements with no nystagmus. Full hollis to confrontation. Her facial expression was asymmetric with left facial weakness. Facial sensation was symmetric. Palate was upgoing. Tongue was midline. Sternocleidomastoid and trapezius were 5/5 in strength. The left facial weakness included weakness of eye closure, albeit she was able to completely close the eye. It is just that she had less ability to strongly close it. She did have weakness also of smiling and slight weakness noted in the left forehead. There was no pronator drift. She gave good strength in upper and lower extremities with finger-to- nose and [id number] movements. Vibration sensation was absent at the large toes, decreased at the ankles by 15 seconds. There is no asymmetry to pinprick , cold or light touch. She had no evidence of dysmetria with normal finger- to- nose and qmfz-to-iyvj movements. Her reflexes were 2+ and symmetric with the exception that ankles are 1+, toes were flexor response bilaterally. Her Romberg was negative. She could walk on her heels and her toes. Her gait was stable. She had some difficulty with tandem gait, occasionally needed to step off to the side. LABORATORY DATA: Data includes reviewing previous medical records from our previous 2 hospitalizations in May and incorporated the pertinent data above. MRI of the brain was also performed today and this film was reviewed directly. There was no evidence of new stroke and she had some old small vessel ischemic disease. Please see report for details. 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 She has been started on doxycycline and this is the appropriate therapy and I would continue for full course of doxycycline. Differential diagnosis does include a viral cause such as HSV. Given she has presented within the day of symptoms, I would suggest a course of acyclovir 800 mg 4 times a day for 7 days. She does have normal renal function. We talked about cure for a Stewart's palsy using Artificial Tears to lubricate the eye and if it gets to the point that her eye does not close using Lacri-Lube, education was given on differential diagnosis. At this point, we will not use steroids given lack of pain and given a high chance that this secondary to infection. We talked about the fact that she will need an interactive designer if she has any colored eye discharges, or reddening of the eye. We talked about prognosis of Stewart's palsy and how this can take time to improve and the fact that some people are left with weakness. As far as tying together her multiple diagnoses she has had in the last month, it is difficult to do so. She did have an extended travel time, which may have made it more likely for her to have pulmonary embolism. It is important for her to have close followup with her primary doctor regarding multiple diagnoses. I have not set up a followup at this time, but I am more than willing to help if there are questions or concerns. Her Lovenox dose is given later in the day today and Dr. Whitmore did stop by during this consultation to discuss timing of her Lovenox dose, starting of her Coumadin, and coumadin diet. TIME SPENT: Over an hour and 20 minutes were spent in direct [id number] patient care. All of the above were discussed. [id number]/[facility] #: [id number] MTDD
[2017-06-07] MEDS ORDERED: DOXYcycline CAP(*) 100 MG PO ONE (15:45)
== END 2017-06-06 15:52 | disposition home or self-care (01) ==
LOC: ED 07:52
DX: G51.0 Bell's palsy (principal)
CPT/HCPCS: 36415; 70450; 70551; 80053; 81003; 83605; 84484; 85025; 85610; 93005; 99283; J1650

== ENCOUNTER 2019-11-22 08:37 | Observation (INO) | payer MEDICARE ==
--- NOTE | 2019-11-08 08:20 | HP ---
CC: Dr. Davin Hinojosa; Dr. Mosley * PREOPERATIVE HISTORY AND PHYSICAL: DATE OF ADMISSION/SURGERY: 11/22/19 This patient is scheduled for same-day surgery admission by Dr. Mary Grace Neely on . DATE OF PREOPERATIVE HISTORY AND PHYSICAL EXAMINATION: 11/05/19 ATTENDING SURGEON: Dr. Mary Grace Neely * (dictated by Lacey Moreno NP). CHIEF COMPLAINT: Primary hyperparathyroidism. HISTORY OF PRESENT ILLNESS: The patient is an 84-year-old female with history of paroxysmal atrial fibrillation, pulmonary embolism, deep vein thrombosis, Stewart's palsy, hypertension, and prior left thyroid lobectomy for benign thyroid nodule in the . She presented to Dr. Neely with hypercalcemia that was identified incidentally on routine labs approximately 6 months ago. She said that her PCP, Dr. Hinojosa, identified this, and during workup, she was found to have primary hyperparathyroidism. She was seen by Dr. Richmond, who referred her for a surgical evaluation. She was found to have a peak calcium level of 10.6 with an elevated PTH and normal vitamin D level. The patient has a history of osteoporosis. She denies kidney stones. She has some memory loss, but no other significant neurocognitive symptoms. She has no history of thyroid cancer or endocrine disorders in her family. Dr. Neely performed an ultrasound here in the office and noted an enlarged right upper parathyroid gland. Dr. Neely reviewed the findings with the patient and has recommended flexible laryngoscopy and parathyroidectomy as a same-day surgery procedure. She discussed the nature of the surgical procedure, the relevant risks and benefits, and today, I reviewed the typical postoperative care and recovery. The patient has had a chance to ask questions and stated that she understands the information and is satisfied with the answers given to her questions. She will sign surgical consent on the day of surgery. PAST MEDICAL HISTORY: Paroxysmal atrial fibrillation, pulmonary embolism and deep vein thrombosis, Stewart's palsy, Lyme disease, essential hypertension, mild aortic regurgitation, and borderline aortic stenosis. PAST SURGICAL HISTORY: Left thyroid lobectomy in 1995 for benign nodule, tonsillectomy with adenoidectomy, D and C with intrauterine polyp removal which was benign, bilateral cataract extraction. MEDICATIONS: 1. Xarelto 20 mg p.o. daily and she will take her last dose on 11/19/19 in preparation for surgery. 2. Metoprolol 25 mg one-half tablet by mouth daily every morning. 3. Alendronate 70 mg 1 tablet weekly on and she will choose another day during the week of surgery. 4. Refresh eye drops as needed for dry eyes. ALLERGIES: No known drug allergies. FAMILY HISTORY: No known anesthesia complications, bleeding tendencies, or clotting disorders. Father with a history of stroke and myocardial infarction at age 85. Mother lived to age 103 with a history of diabetes, peripheral vascular disease, and ulcers. SOCIAL HISTORY: She is and lives alone. She will arrange for someone to stay with her overnight postoperatively. She has never been a smoker and denies the use of alcohol or other substances. REVIEW OF SYSTEMS: General: No previous anesthesia complications. No bleeding tendencies or blood transfusions. She does have a history of pulmonary embolism and deep vein thrombosis diagnosed approximately 2 years ago and continues on anticoagulation. Constitutional: No fevers, or chills, excessive fatigue or weight loss. Endocrine: As described in history of present illness , no diabetes. Respiratory: No dyspnea on exertion, no chronic cough. Cardiovascular: No anginal chest pain or palpitations or syncopal episodes. No history of previous myocardial infarction. She is followed by Dr. Mosley and has an appointment with him on 11/16/19 for preoperative evaluation and we will obtain that note. Gastrointestinal: No nausea, vomiting, diarrhea, GI bleeding, or constipation or change in bowel habits. Genitourinary: No dysuria. Musculoskeletal: Normal strength and tone. Neurologic: Facial drooping and eyelid drooping on the left side status post Stewart's palsy. No blurred vision. No headache. Psychiatric: No reported anxiety, depression, or insomnia. PHYSICAL EXAMINATION GENERAL SURVEY: The patient is an 84-year-old female, well developed, well nourished, in no acute distress. VITAL SIGNS: Height 63 inches, weight 130 pounds, body mass index 23. Blood pressure 142/72, pulse 68 and regular, respiratory rate 16, temperature 97.2 tympanic. HEENT: Benign. Mild facial and left eyelid drooping status post Stewart palsy. NECK: Supple. No palpable masses appreciated. No carotid bruits. No cervical lymphadenopathy. LUNGS: Breath sounds bilaterally clear and equal. HEART: Regular rate and rhythm. No murmurs or rubs appreciated. ABDOMEN: Active bowel sounds. Soft, nondistended, nontender throughout. No obvious masses, organomegaly, or evidence of ventral hernia. PELVIC: Exam deferred. RECTAL: Exam deferred. EXTREMITIES: No edema or skin ulcerations or cyanosis. NEUROLOGIC: Alert and oriented x3. Steady gait. SKIN: Warm, dry, intact. IMPRESSION: Primary hyperparathyroidism. PLAN: Same-day surgery admission to Dr. Mary Grace Neely's service on 11/22/19 for flexible laryngoscopy and parathyroidectomy. The patient will have preoperative evaluation with Dr. Mosley on 11/16/19 and we will obtain that report. She will take her last dose of Xarelto on 11/19/19 in preparation for surgery. JODY MORENO, SPANISH LINGUIST [id number]/[facility] #: [id number] MTDD
[~2019-11-22 08:37] MED LIST: Buffered Lidocaine 1% SYRIN* 1 ML/SYRINGE INTRADERM ONE; Lactated Ringers 1000 ML Bag* 1,000 ML IV SCH
[2019-11-22] MEDS ORDERED: Heparin VIAL(*) 5000 UNITS/ML VIAL (FIVE THOUSAND) ONE ×2 (09:26→09:52)
[2019-11-22] MEDS ORDERED: Buffered Lidocaine 1% SYRIN* 1 ML/SYRINGE INTRADERM ONE (09:26)
[2019-11-22] MEDS ORDERED: Bupivacaine 0.25% SDV* 30 ML ONE (10:35)
[2019-11-22] MEDS ORDERED: Lidocaine 1% INJ* 10 MG/ML 30 ML SDV ONE (10:35)
[2019-11-22] MEDS ORDERED: HYDROmorphone INJ1* 1 MG/ML SYRINGE IV PRN (10:53)
[2019-11-22] MEDS ORDERED: Naloxone* 0.4 MG/ML 1 ML VIAL IV PRN (10:53)
[2019-11-22] MEDS ORDERED: Ondansetron INJ* 2 MG/ML VIAL IV PRN ×2 (10:53→13:15)
[2019-11-22] MEDS ORDERED: Propofol* 10 MG/ML 20 ML BTL ONE (11:07)
[2019-11-22] MEDS ORDERED: HYDROmorphone INJ1* 1 MG/ML SYRINGE ONE (11:08)
[2019-11-22] MEDS ORDERED: Rocuronium* 10 MG/ML VIAL ONE (11:08)
[2019-11-22] MEDS ORDERED: Benzocaine/Butamben/Tetracain (CETACAINE - SINGLE USE) 5 gm TOPICAL ONE (11:12)
[2019-11-22] MEDS ORDERED: Phenylephrine 10 MG/ML VIAL* 1 ML VIAL ONE (11:40)
[2019-11-22] MEDS ORDERED: Dexamethasone IV* 4 MG/ML 1 ML (4 MG) ONE (13:07)
[2019-11-22] MEDS ORDERED: Docusate CAP* 100 MG PO PRN (13:15)
[2019-11-22] MEDS ORDERED: oxyCODONE/Acetamin 5/325 MG* TAB PO PRN (13:15)
[2019-11-22] MEDS ORDERED: Ibuprofen TAB* 600 MG PO PRN (13:15)
[2019-11-22] MEDS ORDERED: Acetaminophen TAB* 325 MG PO PRN (13:15)
[2019-11-22] MEDS ORDERED: HYDROmorphone INJ1* 1 MG/ML SYRINGE IV SLOW PU PRN (13:15)
[2019-11-22] MEDS ORDERED: Nitroglycerin TAB 0.4 MG* 0.4 MG TAB SL PRN (13:26)
[2019-11-22] MEDS ORDERED: Polyethyl Glycol/Propylene Gly OPHTH.SOLN LEFT EYE PRN (13:26)
[2019-11-22] MEDS ORDERED: Sugammadex * 200 MG/2 ML VIAL IV PUSH ONE (13:53)
--- NOTE | 2019-11-22 14:11 | BRIEFOPN ---
Brief Operative/Procedure Note - Operation Details Pre-Op Diagnosis: primary hyperparathyroidism Post-Op Diagnosis: primary hyperparathyroidism Procedures: RU parathyroidectomy Surgeon(s)/Proceduralists: Mary Grace Neely Anesthesia: GETA Findings: very enlarged right upper parathyroid adenoma Complications: none
[2019-11-22] MEDS: Lactated Ringers 1000 ML Bag* 1,000 ML IV SCH (16:12)
[2019-11-22 18:04] LABS: ABS Lymphocytes 4.2 10^3/ul (1.0-4.8); ABS Monocytes 0.1 10^3/ul (0-0.8); ABS Neutrophils 5.1 10^3/ul (1.5-7.7); Hematocrit 39 % (35-47); Hemoglobin 12.6 g/dL (12.0-16.0); Lymphocyte % 44.5 %; Mean Corpuscular HGB Conc 33 g/dL (31-36); Mean Corpuscular Hemoglobin 32 pg (27-31); Mean Corpuscular Volume 100 fL (80-97); Mean Platelet Volume 8.6 fL (7.4-10.4); Nucleated Red Blood Cells % 0.2; Platelet Count 168 10^3/uL (150-450); Red Blood Count 3.91 10^6 /uL (3.70-4.87); Red Cell Distribution Width 16 % (10-15); White Blood Count 9.5 10^3/uL (3.5-10.8)
[2019-11-22 18:19] LABS: BUN/Creatinine Ratio 33.3 (8-20); Calcium 8.9 mg/dL (8.6-10.3); EGFR African American 74.7 (>60); EGFR Non-African American 61.7 (>60); Potassium 4.5 mmol/L (3.5-5.0)
[2019-11-22] MEDS ORDERED: Calcium Carbonate TAB* 1250 MG (CALCIUM 500 MG) PO ONE (20:00)
--- NOTE | 2019-11-22 20:46 | CONS ---
MEDICAL CONSULTATION REPORT: DATE OF CONSULT: 11/22/19 REQUESTING PHYSICIAN: Dr. Neely. REASON FOR CONSULTATION: Medical management in the post-parathyroidectomy phase. HISTORY OF PRESENT ILLNESS: An 84-year-old female with a history of atrial fibrillation, pulmonary embolus, DVT, hypertension, prior left thyroid lobectomy , who was seen by Dr. Neely as an outpatient for hypercalcemia, was noted to have a workup and was noted to have primary hyperparathyroidism, with a history of osteoporosis, and the patient is status post parathyroidectomy today. At the time of exam, the patient reports that she is doing well except for significant nausea, and the patient vomited during the interview. The patient has p.r.n. Zofran ordered. Other than this, the patient denies any numbness, tingling, or spasms; no tetany symptoms, no abdominal pain, and otherwise doing well. The patient received general anesthesia and regional anesthesia for her procedure. PAST MEDICAL HISTORY: 1. Abducens nerve palsy. 2. Stewart palsy. 3. Benign essential hypertension. 4. Aortic valve disorder. 5. Mitral valve disorder. 6. Heart murmur. 7. Aide's thyroiditis. 8. Hypercholesterolemia, colonoscopy. 9. Atrial fibrillation. 10. PE and DVT as mentioned. PAST SURGICAL HISTORY: 1. Left thyroid lobectomy in 1995 for cold nodule. 2. Tonsillectomy with adenoidectomy. 3. D and C. 4. Intrauterine polyp removal, benign. 5. Cataract removal. HOME MEDICATIONS: 1. Metoprolol 25 mg half tablet by mouth daily. 2. Alendronate 70 mg 1 tab p.o. once a day. 3. Xarelto 20 mg 1 by mouth every day. 4. Refresh use daily for dry eyes. 5. Nitroglycerin 0.5 mg sublingual as needed for chest pain. FAMILY HISTORY: Father from [place] at age 85, stroke in his 70s, hypertension. Mother from ulcer at age 103 years with diabetes, peripheral vascular disease. Siblings: Two brothers with diabetes, sister with leukemia. Two sons and two daughters; one son with diabetes and one son with prediabetes. SOCIAL HISTORY: The patient is retired, never smoked, does not use alcohol or other recreational drugs. REVIEW OF SYSTEMS: As mentioned in the HPI, other 14-point review of systems noted to be negative. ASSESSMENT AND PLAN: 1. Primary hyperparathyroidism, status post right upper parathyroidectomy. The patient was noted to have very enlarged right upper parathyroid adenoma. 2. Her PTH prior to her procedure was noted to be 299.4 and from earlier this morning was noted to be 115.4. The patient's calcium in the past was 10.6 with ionized calcium of 1.4. 3. We will follow calcium closely in the postop setting to monitor and rule out Hungry bone syndrome. The patient currently does not have any symptoms suggestive of hypocalcemia and is doing well. We will monitor closely in the next 24 to 48 hours. 4. The patient's nausea is likely related to anesthesia in surgery. We will treat with p.r.n. Zofran and will monitor closely. 5. We will check a BMP later in the day tonight if warranted with repeat labs in the morning. 6. Atrial fibrillation. The patient has restarted on her metoprolol and currently heart rate is well controlled. Can restart Xarelto, when okayed from the surgical standpoint. The patient is currently not short of breath and doing well. 7. DVT prophylaxis with heparin. 8. The patient also received calcium carbonate post her procedure. 9. Pain control. Percocet is ordered by Surgery. 10. We will closely follow PTH and calcium levels. 11. We will follow with the surgical team and be available for any questions. [id number]/[facility] #: [id number] GIUSEPPE
[2019-11-22] MEDS: Heparin VIAL(*) 5000 UNITS/ML VIAL (FIVE THOUSAND) SUBCUT SCH (21:46)
--- NOTE | 2019-11-23 02:45 | OP ---
CC: Dr. Hinojosa; Dr. Zaragoza Coch * DATE OF OPERATION: 11/22/19 - ROOM #348 DATE OF : 31 SERVICE: General Surgery. ATTENDING SURGEON: Mary Grace Neely MD VULCANIZING MACHINE OPERATOR: Lacey Abreu NP ANESTHESIOLOGIST: Dr. Chanel. ANESTHESIA: General endotracheal anesthesia. PRE-OP DIAGNOSIS: Primary hyperparathyroidism. POST-OP DIAGNOSIS: Primary hyperparathyroidism. OPERATIVE PROCEDURE: Flexible laryngoscopy and right upper parathyroidectomy. SPECIMEN: Right upper parathyroid glands. ESTIMATED BLOOD LOSS: Minimal, less than 10 cc. INDICATIONS FOR SURGERY: Ms. Akers is a very pleasant 84-year-old female with a history of osteoporosis, prior left lobectomy, atrial fibrillation, and hypertension, who also had primary hyperparathyroidism. She has had elevated calcium up to 10.9 and preoperative office ultrasound showed what looks to be a right-sided parathyroid adenoma. Given that she has had prior neck surgery, I did discuss with the patient that it would be unclear how if on the left side she had any parathyroid glands remaining given that she did have a left lobectomy in the past over 30 years ago and there is no operative report from this procedure. Since she has also had prior neck surgery, she did give informed consent for flexible laryngoscopy to evaluate her vocal cords. She understood that the plan would be to perform a focused right upper parathyroidectomy. She understood the alternatives and benefits as well and she wished to proceed with surgery. DESCRIPTION OF PROCEDURE: The patient was brought back to the operating room and placed on the operating table in the supine position. Sequential compression devices were placed in the bilateral lower extremities for DVT prophylaxis. No antibiotics were administered. The patient was given small amount of propofol to assist with sedation and benzocaine spray was used to anesthetize her nose and the back of her throat. Next, a flexible laryngoscope was then placed to her right naris and advanced to her vocal cords. She was little bit too sleepy to phonate for us, however, with breathing, there was clearly midline apposition at her vocal cords. The laryngoscope was then removed. The patient underwent general endotracheal anesthesia and then electrodes of the nerve monitor were attached. A time-out was performed prior to administering local anesthesia to the neck, which consisted of 0.25% Marcaine and 1% lidocaine mixed. After this was done, her neck was prepped and draped in the normal sterile fashion. The patient had a prior incision from her left thyroid lobectomy many years ago. This incision was used today. Approximately 4-cm incision was made through her old incision, which was about 3 fingerbreadths above the sternal notch. The skin was divided down to the subcutaneous tissue. The platysma was divided and the inferior and superior subplatysmal flaps were developed. The median raphe between the strap muscles was easily identified and the strap muscles were retracted laterally off of the isthmus of the thyroid. Next, given that she had an ultrasound showing right upper adenoma, attention was turned towards the right side. The right thyroid lobe was retracted anteriorly and laterally. The middle thyroid vein was identified and divided and an exploration of the posterior tracheoesophageal groove was performed. The patient had a thyroid tubercle that was very prominent. It was most likely thought to be thyroid gland, however, small piece of the tissue was taken for biopsy that confirmed thyroid tissue. The space posterior to this and near the esophagus was also explored superiorly and no upper adenomas were identified. Next, attention was turned towards identifying the recurrent laryngeal nerve. It was identified with the assistance of the nerve monitor and also visually identified. was coursed out and once this was done, the space posterior to this was examined more carefully. A very large parathyroid adenoma was then identified posterior to the nerve little bit more inferiorly. It was extremely enlarged and it was dissected out in its entirety. Once the pedicle was isolated, it was then divided with care to avoid any injury to the recurrent laryngeal nerve. At this point, serial PTH values were obtained. Her baseline had been obtained in the preoperative holding area and it was 282.8. T0 was 299.4, T5 was 182.1, and T10 was 115.4. Given the [place] criteria had been met, the surgery was terminated. Hemostasis was obtained in the right lateral neck. Tisseel was placed into the right lateral neck and then the strap muscles were reapproximated using interrupted 4-0 Vicryl sutures. The platysma was reapproximated using 4-0 Vicryl sutures. The skin was closed using running 5-0 Prolene suture. Sterile dressing was then placed. The patient's anesthesia was reversed and she was taken to the PACU in stable condition. At the end of the case, all counts were correct and I was present during the entirety of the case. [id number]/[facility] #: [id number] MTDD
[2019-11-23] MEDS: Lactated Ringers 1000 ML Bag* 1,000 ML IV SCH (03:38)
[2019-11-23] MEDS: Heparin VIAL(*) 5000 UNITS/ML VIAL (FIVE THOUSAND) SUBCUT SCH (05:38)
[2019-11-23] MEDS ORDERED: Calcium Carbonate TAB* 1250 MG (CALCIUM 500 MG) PO ONE (08:00)
[2019-11-23] MEDS ORDERED: Metoprolol Tartrate TAB* 25 MG PO SCH (09:00)
--- NOTE | 2019-11-23 10:48 | PN ---
Progress Note - Progress Note Date of Service: 11/23/19 Note: S: POD #1. Had one episode of vomiting last pm; none this a.m. Emilia'd bfast. Notes some hoarseness this a.m. Some mild pain w/ swallowing; has not req'd any analgesics. O: Vital Signs - 8 hr 11/23/19 11/23/19 11/23/19 03:26 08:00 08:44 Temperature 98.3 F 98 F Pulse Rate 63 67 Respiratory 16 17 16 Rate Blood Pressure 109/46 108/46 (mmHg) O2 Sat by Pulse 96 97 Oximetry Intake and Output Last 24 Hours 11/21/19 11/22/19 11/23/19 11/24/19 06:59 06:59 06:59 06:59 Intake Total 2068 320 Output Total 1000 400 Balance 1068 -80 Weight 132 lb Intake: IV Fluids 1358 LR 1358 Oral 710 320 Output: Urine 1000 400 Other: Date of Last Bowel 11/22/19 Movement # Bowel Movements 1 Estimated Stool Amount Small Gen: appears well; NAD Neck: dressing in place; clean, dry. No sig swelling or ecchymosis. Soft; no sig tenderness. Labs: Laboratory Tests 11/23/19 11/23/19 05:33 05:33 Calcium 8.9 PTH Intact 14.6 A: s/p parathyroidectomy, doing well P: instructions reviewed; home today; restart Xarelto 11/24. Office f/u next wk.
[2019-11-23 11:39] VITALS: BP 100/47
--- NOTE | 2019-11-23 15:21 | PN ---
Subjective Date of Service: 11/23/19 Interval History: Reports feeling well.Plan for discharge today Objective Active Medications: Acetaminophen (Tylenol Tab*) 650 mg PO Q4H PRN PRN Reason: MILD PAIN or TEMP > 100.4 Docusate Sodium (Colace Cap*) 100 mg PO BID PRN PRN Reason: CONSTIPATION Heparin Sodium (Porcine) (Heparin Flush Picc/Ml/Cvc(*)) 1 - 3 ml FLUSH 0600, 1800 [facility]; Protocol Last Admin: 11/23/19 05:40 Dose: 1 ml Hydromorphone HCl (Dilaudid Inj1s*) 0.5 mg IV SLOW PU Q2H PRN PRN Reason: PAIN - SEVERE Lactated Ringer's (Lactated Ringers 1000 Ml Bag*) 1,000 mls @ 75 mls/hr IV PER RATE [facility] Last Admin: 11/23/19 03:38 Dose: 75 mls/hr Ibuprofen (Motrin Tab*) 600 mg PO Q8H PRN PRN Reason: PAIN - MILD Metoprolol Tartrate (Lopressor Tab*) 25 mg PO QAM [facility] Last Admin: 11/23/19 08:40 Dose: 25 mg Nitroglycerin (Nitroglycerin Tab 0.4 Mg*) 0.4 mg SL Q5M PRN PRN Reason: chest pain Ondansetron HCl (Zofran Inj*) 4 mg IV Q4H PRN PRN Reason: NAUSEA/VOMITING Last Admin: 11/22/19 17:15 Dose: 4 mg Oxycodone/Acetaminophen (Percocet 5/325 Tab*) 1 tab PO Q4H PRN PRN Reason: PAIN - MODERATE Polyethyl Glycol/Propylene Glycol (Lubricant Eye Drops) 1 drop LEFT EYE QID PRN PRN Reason: DRY EYE Vital Signs - 8 hr 11/23/19 11/23/19 11/23/19 08:00 08:44 11:38 Temperature 98 F 98 F Pulse Rate 67 57 Respiratory 17 16 15 Rate Blood Pressure 108/46 100/47 (mmHg) O2 Sat by Pulse 97 99 Oximetry Oxygen Devices in Use Now: None Neck: NL Appearance and Movements; NL JVP Respiratory: Symmetrical Chest Expansion and Respiratory Effort Cardiovascular: - - irregularly irregular Abdominal: NL Sounds; No Tenderness; No Distention Extremities: No Edema Neurological: Alert and Oriented x 3 Result Diagrams: 11/22/19 17:53 11/22/19 17:53 Assess/Plan/Problems-Billing Assessment: - Patient Problems (1) HTN (hypertension) Current Visit: No Status: Acute Code(s): I10 - ESSENTIAL (PRIMARY) HYPERTENSION SNOMED Code(s): 38432471 Comment: Continue home meds (2) PAF (paroxysmal atrial fibrillation) Current Visit: No Status: Acute Code(s): I48.0 - PAROXYSMAL ATRIAL FIBRILLATION SNOMED Code(s): 796481576 Comment: Continue anticoag from tomorrow and Metoprolol (3) Pulmonary embolism Current Visit: No Status: Acute Code(s): I26.99 - OTHER PULMONARY EMBOLISM WITHOUT ACUTE COR PULMONALE SNOMED Code(s): 08640116 Comment: h/o PE On Xarelto (4) Hyperparathyroidism Current Visit: Yes Status: Acute Code(s): E21.3 - HYPERPARATHYROIDISM, UNSPECIFIED SNOMED Code(s): 00848250 Comment: Pth and Ca levels appropriate post surgery s/p parathyroidectomy yesterday Doing well postop
--- NOTE | 2019-11-23 19:44 | DS ---
CC: Dr. Davin Hinojosa; Dr. Nik Richmond * DISCHARGE SUMMARY: DATE OF ADMISSION: 11/22/19 DATE OF DISCHARGE: 11/23/19 ATTENDING SURGEON: Dr. Mary Grace Neely.* (DICTATED BY EBONY ZAMUDIO) HOSPITAL COURSE: Please refer to admission history and physical and operative note as well as daily progress note from the morning of discharge. The patient underwent parathyroidectomy on 11/22/[address] Neely. She was admitted overnight for observation. She was seen in consultation by the hospitalist for medical management. She did have 1 episode of vomiting in the evening of surgery, but this has since passed and she is tolerating diet well the morning of discharge. She does report some mild hoarseness and mild pain with swallowing. Exam was unremarkable and specifically neck exam revealed intact, clean and dry dressing without significant swelling, hematoma, or ecchymosis. Laboratory on the morning of discharge revealed abnormal serum calcium and PTH. IMPRESSION: Status post parathyroidectomy. PLAN: Home today. Instructions were reviewed. She will resume her Xarelto as of 11/24/19. Her other medications will be resumed per her usual regimen. She has a followup scheduled with Dr. Neely on 11/28/19. She is discharged to home in good condition. EBONY ZAMUDIO [id number]/[facility] #: [id number] MTDD
== END 2019-11-23 14:45 | disposition home or self-care (01) ==
LOC: OR 08:37 → SSU 13:15
PROVIDERS: ADMIT Surgery; ATTEND Surgery
DX: E21.0 Primary hyperparathyroidism (principal); I48.0 Paroxysmal atrial fibrillation; I26.99 Other pulmonary embolism without acute cor pulmonale; I10 Essential (primary) hypertension; Z79.01 Long term (current) use of anticoagulants; Z79.899 Other long term (current) drug therapy; R11.10 Vomiting, unspecified; G58.9 Mononeuropathy, unspecified; Z86.711 Personal history of pulmonary embolism; Z86.718 Personal history of other venous thrombosis and embolism
CPT/HCPCS: 36415; 80048; 82310; 83970; 85025; 88305; 88331; 96372; 96374; A9270-GY; G0378; J1100; J1170; J1644; J2405; J2704; J3490